=== PATIENT | female | born 1975 | race Caucasian/White ===

== ENCOUNTER → 2018-11-10 | Emergency (ER) | payer SELFPAY | END | disposition left against medical advice (07) | LOC: ER 17:00 | DX: R11.2 Nausea with vomiting, unspecified (principal); R19.7 Diarrhea, unspecified ==

== ENCOUNTER 2018-11-20 13:51 | Emergency (ER) | payer OTHER ==
[~2018-11-20] VITALS: Ht 154.9 cm; Wt 76.2 kg
[2018-11-20] MEDS ORDERED: IBUPROFEN 800 MG (MOTRIN) TAB PO STA (14:26)
--- NOTE | 2018-11-20 14:51 | Diagnostic Imaging Report ---
INDICATION: Left ankle pain AP, oblique, and lateral views left ankle are obtained. No fracture or acute bony abnormality seen. There is plantar and posterior calcaneal spurring. IMPRESSION: No acute abnormality of left ankle. Dictated by: Dictated on workstation # [id number]
--- NOTE | 2018-11-20 14:53 | Diagnostic Imaging Report ---
INDICATION: Left foot pain. AP, oblique, lateral views of left foot are obtained. No fracture or acute bony abnormality is seen. There is posterior plantar calcaneal spurring. IMPRESSION: Negative left foot. Dictated by: Dictated on workstation # [id number]
--- NOTE | 2018-11-20 15:00 | ED Lower Extremity ---
General Chief Complaint: Lower Extremity Stated Complaint: L FOOT INJ Nursing Triage Note: AMBULATED TO TRIAGE ET LIMPING ON LEFT SIDE. STATES TWO DAYS AGO SHE ROLLED HER LEFT ANKLE AND YESTERDAY SHE SLIPPED ON ICE. TOOK IBUPROFEN LAST NOC. Nursing Sepsis Screen: No Definite Risk History of Present Illness Date Seen by Provider: Nov 20, 2018 Time Seen by Provider: 14:30 Initial Comments 42-year-old female presents for left ankle and foot pain. She states 2 days ago she twisted her left ankle and then yesterday at work her foot and ankle were twisted. She's had no significant injuries to her left lower extremity in the past. Onset: yesterday Pain/Injury Location: left foot, left ankle Method of Injury: twisted Modifying Factors: Improves With Rest Allergies and Home Medications Allergies Coded Allergies: Penicillins (Verified Allergy, Severe, SOA, HIVES, EDEMA, 11/20/18) amoxicillin (Verified Allergy, Severe, SOA, HIVES, EDEMA, 11/20/18) ampicillin (Verified Allergy, Severe, SOA, HIVES, EDEMA, 11/20/18) codeine (Verified Allergy, Severe, RASH, EDEMA, 11/20/18) meperidine (Verified Allergy, Severe, RASH, SOA, EDEMA, 11/20/18) Uncoded Allergies: ALL PAIN MEDS (Allergy, Severe, HIVES, SOA, EDEMA, 11/20/18) Home Medications No Active Prescriptions or Reported Meds Patient Home Medication List Home Medication List Reviewed: Yes Review of Systems Constitutional: no symptoms reported, see HPI Musculoskeletal: see HPI, joint pain (left ankle and foot) All Other Systems Reviewed Negative Unless Noted: Yes Past Xuzmcgt-Zlfmtx-Uwdrvb Hx Past Med/Social Hx: Reviewed Nursing Past Med/Soc Hx Patient Social History Alcohol Use: Occasionally Uses Recreational Drug Use: No Smoking Status: Former Smoker Recent Foreign Travel: No Contact w/Someone Who Travel: No Recent Infectious Disease Expo: No Past Medical History Respiratory: No Cardiac: No Neurological: No : No 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 oz. 76.155799lc; BMI Method:Stated General Appearance: WD/WN, no apparent distress Cardiovascular: normal peripheral pulses, regular rate, rhythm, no edema, no murmur Respiratory: chest non-tender, lungs clear, normal breath sounds Ankles: left ankle normal inspection, left ankle normal range of motion, left ankle bone tenderness (lateral), left ankle soft tissue tenderness (over ATFL), left ankle swelling Feet: left foot normal inspection, left foot normal range of motion, left foot bone tenderness (midfoot), left foot soft tissue tenderness, left foot other ( neurovascular status intact left lower extremity symmetric with the right.) Neurologic/Psychiatric: no motor/sensory deficits, alert, normal mood/affect Progress/Results/Core Measures Results/Orders My Orders Orders - BRIT ALEXANDRA Ibuprofen Tablet (Motrin Tablet) (11/20/18 14:26) Foot, Left, 3 Views (11/20/18 14:26) Ankle, Left, 3 Views (11/20/18 14:26) Vital Signs/I&O 11/20/18 13:59 Temp 98.1 Pulse 88 Resp 16 B/P (MAP) 114/69 (84) Pulse Ox 99 O2 Delivery Room Air Blood Pressure Mean: 84 Diagnostic Imaging Diagonstic Imaging: Xray Comments NAME: CHARU HELTON [facility] REC#: [id number] PT STATUS: REG ER : 1975 PHYSICIAN: BRIT ALEXANDRA ADMIT DATE: 11/20/18/ER Draft Date of Exam:11/20/18 ANKLE, LEFT, 3 VIEWS INDICATION: Left ankle pain AP, oblique, and lateral views left ankle are obtained. No fracture or acute bony abnormality seen. There is plantar and posterior calcaneal spurring. IMPRESSION: No acute abnormality of left ankle. Dictated on workstation # [id number] Dict: 11/20/18 1449 Trans: 11/20/18 1450 [facility] [id number] Interpreted by: MARK ANTHONY RUSSELL MD Electronically signed by: Reviewed: Reviewed by Me Diagonstic Imaging: Xray Comments NAME: CHARU HELTON [facility] REC#: [id number] PT STATUS: REG ER : 1975 PHYSICIAN: BRIT ALEXANDRA ADMIT DATE: 11/20/18/ER Draft Date of Exam:11/20/18 FOOT, LEFT, 3 VIEWS INDICATION: Left foot pain. AP, oblique, lateral views of left foot are obtained. No fracture or acute bony abnormality is seen. There is posterior plantar calcaneal spurring. IMPRESSION: Negative left foot. Dictated on workstation # [id number] Dict: 11/20/18 1448 Trans: 11/20/18 1452 [facility] [id number] Interpreted by: MARK ANTHONY RUSSELL MD Electronically signed by: Reviewed: Reviewed by Me Departure Impression Primary Impression: Left ankle sprain Qualified Codes: S93.492A - Sprain of other ligament of left ankle, initial encounter Additional Impression: Sprain of foot, left Qualified Codes: S93.602A - Unspecified sprain of left foot, initial encounter Disposition: HOME, SELF-CARE Condition: Stable Departure-Patient Inst. Decision time for Depature: 14:55 Referrals: NO,LOCAL PHYSICIAN (PCP/Family) Primary Care Physician Patient Instructions: Ankle Sprain (DC) Add. Discharge Instructions: Ice and elevate left ankle and foot. Ice 20 minutes every 2 hours while awake. You may alternate between Tylenol 650 mg and ibuprofen 600 mg every 4 hours for pain and swelling. Activity as tolerated, progress weight bearing on left lower extremity. Follow-up with your primary care provider if symptoms are not improving or worsen. Return to emergency department for new, urgent health care needs. All discharge instructions reviewed with patient and/or family. Voiced understanding. Scripts No Active Prescriptions or Reported Meds Work/School Note: Work Release Form Date Seen in the Emergency Department: Nov 20, 2018 Return to Work: Nov 24, 2018 Other Restrictions Listed Below: Light duty for left foot/ankle as tolerated. Ice and elevate every 2 hours BRIT ALEXANDRA Nov 20, 2018 15:00
[2018-11-20 15:20] VITALS: BP 114/69
--- NOTE | 2018-11-20 15:20 | NUR ---
PT WENT TO [facility] AFTER DISCHARGE.
== END 2018-11-20 15:20 | disposition home or self-care (01) ==
LOC: EDUNIT# 13:51 → ER 13:53
DX: S93.492A Sprain of other ligament of left ankle, initial encounter (principal); S93.602A Unspecified sprain of left foot, initial encounter; Z88.0 Allergy status to penicillin; Z88.5 Allergy status to narcotic agent; Z88.8 Allergy status to other drugs, medicaments and biological substances; Z98.51 Tubal ligation status; Z87.891 Personal history of nicotine dependence; X50.1XXA Overexertion from prolonged static or awkward postures, initial encounter; Y92.59 Other trade areas as the place of occurrence of the external cause; Y99.0 Civilian activity done for income or pay
CPT/HCPCS: 73610; 73630

== ENCOUNTER 2019-02-26 12:23 | Emergency (ER) | payer SELFPAY ==
[~2019-02-26] VITALS: Ht 154.9 cm; Wt 66.2 kg
[2019-02-26] MEDS ORDERED: KETOROLAC 30 MG/ML VIAL IVP ONE (12:45)
[2019-02-26] MEDS ORDERED: LACTATED RINGERS 1,000 ML IV SCH (12:45)
--- NOTE | 2019-02-26 12:48 | ED Abdominal Pain ---
General Chief Complaint: Abdominal/GI Problems Stated Complaint: R SIDE PAIN Source of Information: Patient Exam Limitations: No Limitations History of Present Illness Date Seen by Provider: Feb 26, 2019 Time Seen by Provider: 12:46 Initial Comments To ER per private vehicle with reports of right-sided abdominal pain that began this morning. She had some nausea yesterday but no pain. The pain was fairly well localized to the right lower quadrant this morning and throughout the course of the day has become more diffuse including the right flank right upper abdomen and moving towards the midline. No fevers or chills. No constipation or diarrhea though she does have increased pain when straining to have a bowel movement. She has had nausea without vomiting. She does not have a gallbladder. Timing/Duration: 1-2 Days Severity/Quality: Moderate Location: RUQ, RLQ, Flank Radiation: No Radiation Activities at Onset: None Associated Symptoms: Denies Symptoms Allergies and Home Medications Allergies Coded Allergies: Penicillins (Verified Allergy, Severe, SOA, HIVES, EDEMA, 11/20/18) amoxicillin (Verified Allergy, Severe, SOA, HIVES, EDEMA, 11/20/18) ampicillin (Verified Allergy, Severe, SOA, HIVES, EDEMA, 11/20/18) codeine (Verified Allergy, Severe, RASH, EDEMA, 11/20/18) meperidine (Verified Allergy, Severe, RASH, SOA, EDEMA, 11/20/18) Uncoded Allergies: ALL PAIN MEDS (Allergy, Severe, HIVES, SOA, EDEMA, 11/20/18) Home Medications Ketorolac Tromethamine 10 Mg Tablet, 10 MG PO Q6H PRN for PAIN-MODERATE TO SEVERE Prescribed by: BRENTON FROST on 02/26/19 1508 Patient Home Medication List Home Medication List Reviewed: Yes Review of Systems Review of Systems Constitutional: see HPI; No chills, No fever EENTM: No Symptoms Reported Respiratory: No Symptoms Reported Gastrointestinal: See HPI, Abdominal Pain; Denies Constipated, Denies Diarrhea ; Nausea; Denies Vomiting Genitourinary: No Symptoms Reported Musculoskeletal: no symptoms reported Skin: no symptoms reported Psychiatric/Neurological: No Symptoms Reported Endocrine: No Symptoms Reported Hematologic/Lymphatic: No Symptoms Reported Past Hfvtlan-Kixecj-Jvxyap Hx Patient Social History Recent Foreign Travel: No Contact w/Someone Who Travel: No Past Medical History Respiratory: No Cardiac: No Neurological: No 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 oz. 76.388059yz; BMI Method:Stated General Appearance: WD/WN, no apparent distress, other (tearful) HEENT: PERRL/EOMI, normal ENT inspection Neck: non-tender, full range of motion Respiratory: normal breath sounds, no respiratory distress, no accessory muscle use Gastrointestinal: normal bowel sounds, non tender, soft Extremities: normal range of motion, non-tender Neurologic/Psychiatric: alert, normal mood/affect, oriented x 3 Skin: normal color, warm/dry Progress/Results/Core Measures Results/Orders Lab Results Laboratory Tests Test 02/26/19 12:41 02/26/19 13:55 Range/Units White Blood Count 4.8 4.3-11.0 10^3/uL Red Blood Count 4.15 L 4.35-5.85 10^6/uL Hemoglobin 11.8 11.5-16.0 G/DL Hematocrit 36 35-52 % Mean Corpuscular Volume 86 80-99 FL Mean Corpuscular Hemoglobin 28 25-34 PG Mean Corpuscular Hemoglobin Concent 33 32-36 G/DL Red Cell Distribution Width 13.6 10.0-14.5 % Platelet Count 230 130-400 10^3/uL Mean Platelet Volume 12.2 H 7.4-10.4 FL Neutrophils (%) (Auto) 55 42-75 % Lymphocytes (%) (Auto) 33 12-44 % Monocytes (%) (Auto) 10 0-12 % Eosinophils (%) (Auto) 1 0-10 % Basophils (%) (Auto) 1 0-10 % Neutrophils # (Auto) 2.7 1.8-7.8 X 10^3 Lymphocytes # (Auto) 1.6 1.0-4.0 X 10^3 Monocytes # (Auto) 0.5 0.0-1.0 X 10^3 Eosinophils # (Auto) 0.1 0.0-0.3 10^3/uL Basophils # (Auto) 0.0 0.0-0.1 10^3/uL Sodium Level 139 135-145 MMOL/L Potassium Level 4.0 3.6-5.0 MMOL/L Chloride Level 107 98-107 MMOL/L Carbon Dioxide Level 25 21-32 MMOL/L Anion Gap 7 5-14 MMOL/L Blood Urea Nitrogen 13 7-18 MG/DL Creatinine 0.90 0.60-1.30 MG/DL Estimat Glomerular Filtration Rate > 60 BUN/Creatinine Ratio 14 Glucose Level 103 70-105 MG/DL Calcium Level 9.1 8.5-10.1 MG/DL Corrected Calcium 9.0 8.5-10.1 MG/DL Total Bilirubin 0.5 0.1-1.0 MG/DL Aspartate Amino Transf (AST/SGOT) 12 5-34 U/L Alanine Aminotransferase (ALT/SGPT) 16 0-55 U/L Alkaline Phosphatase 60 40-136 U/L Total Protein 6.8 6.4-8.2 GM/DL Albumin 4.1 3.2-4.5 GM/DL Serum Test, Qualitative NEGATIVE NEGATIVE Urine Color YELLOW Urine Clarity SLIGHTLY CLOUDY Urine pH 8 5-9 Urine Specific [place] 1.010 L 1.016-1.022 Urine Protein 1+ H NEGATIVE Urine Glucose (UA) NEGATIVE NEGATIVE Urine Ketones NEGATIVE NEGATIVE Urine Nitrite NEGATIVE NEGATIVE Urine Bilirubin NEGATIVE NEGATIVE Urine Urobilinogen NORMAL NORMAL MG/DL Urine Leukocyte Esterase 1+ H NEGATIVE Urine RBC (Auto) 5+ H NEGATIVE Urine RBC TNTC H /HPF Urine WBC NONE /HPF Urine Squamous Epithelial Cells 0-2 /HPF Urine Crystals NONE /LPF Urine Bacteria NEGATIVE /HPF Urine Casts NONE /LPF Urine Mucus NEGATIVE /LPF Urine Culture Indicated NO My Orders Orders - BRENTON FROST 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 OPERATOR FUSE Cbc With Automated Diff (02/26/19 12:45) Comprehensive Metabolic Panel (02/26/19 12:45) Ua Culture If Indicated (02/26/19 12:45) Hcg,Qualitative Serum (02/26/19 12:45) Iv Heplock-Insert (Order) (02/26/19 12:45) Ketorolac Injection (Toradol Injection) (02/26/19 12:45) Lactated Ringers (Lr 1000 Ml Iv Solution (02/26/19 12:45) Ct Abd/Pelv W (Appendicitis) (02/26/19 12:45) Iohexol Injection (Omnipaque 350 Mg/Ml 1 (02/26/19 14:15) Received Contrast (Hold Metformin- Contr (02/26/19 14:15) Abdomen/Kub 1view (02/26/19 14:36) Medications Given in ED Current Medications Medications Dose Ordered Sig/Beatris Route Start Time Stop Time Status Last Admin Dose Admin Iohexol 100 ml ONCE ONCE IV 02/26/19 14:15 02/26/19 14:16 DC 02/26/19 14:16 100 ML Ketorolac Tromethamine 30 mg ONCE ONCE IVP 02/26/19 12:45 02/26/19 12:47 DC 02/26/19 12:55 30 MG Vital Signs/I&O 02/26/19 12:50 Temp 97.9 Pulse 62 Resp 15 B/P (MAP) 102/55 (71) Pulse Ox 99 O2 Delivery Room Air Diagnostic Imaging Diagonstic Imaging: Xray, CT Comments NAME: CHARU HELTON [facility] REC#: [id number] PT STATUS: REG ER : 1975 PHYSICIAN: BRENTON FROST APRN ADMIT DATE: 02/26/19/ER Draft Date of Exam:02/26/19 CT ABD/PELV W (APPENDICITIS) PROCEDURE: CT abdomen and pelvis with contrast, rule out appendicitis. TECHNIQUE: Multiple contiguous axial images were obtained through the abdomen and pelvis after the administration of intravenous contrast. INDICATION: Right-sided abdominal pain and nausea. No prior studies are available for comparison. The lung bases are clear. No discrete liver mass is identified. The gallbladder is surgically absent. No biliary duct dilatation is seen. The pancreas and spleen are unremarkable. No adrenal mass is seen. Bilateral renal calculi are present. There is a stone located at the right UPJ measuring 8 mm in size. There is hydronephrosis on the right as well as proximal peripelvic and periureteral inflammatory stranding. The remainder of the right ureter is unremarkable. Left ureter is unremarkable. Nonobstructing stone in the left kidney measures 5 mm. Aorta is nonaneurysmal. Small and large bowel loops are normal caliber. There is some diverticulosis of the sigmoid but no evidence of acute diverticulitis. Appendix is unremarkable. The uterus appears to be enlarged and may contain fibroids. Small cyst right adnexa measures 16 mm and is likely ovarian. The bladder is unremarkable. There is no ascites. IMPRESSION: 1. Bilateral urinary tract calculi. There is an 8 mm calculus at the right UPJ producing mild hydronephrosis as well surrounding inflammatory changes. 2. Uncomplicated diverticulosis. 3. Enlarged uterus, perhaps containing fibroids. 4. Small right adnexal cyst. Dictated on workstation # [id number] Dict: 02/26/19 1437 Trans: 02/26/19 1445 [facility] [id number] Interpreted by: TATIANA BRASHER MD Electronically signed by: Departure Communication (Admissions) I discussed the case with Dr. Mckeon. We will discharge the patient home on oral Toradol given her list of allergies and reported to me of being allergic to "everything" in regards to pain medication. She Tylenol to the Toradol, she should call his office for an appointment time, the lithotripsy bus comes next Sunday. Impression Primary Impression: Right ureteral stone Disposition: HOME, SELF-CARE Condition: Stable Departure-Patient Inst. Decision time for Depature: 14:39 Referrals: NO,LOCAL PHYSICIAN (PCP) Primary Care Physician PETEY ISBELL MD Patient Instructions: Kidney Stones in Adults Add. Discharge Instructions: 1. Call Dr. Isbell today or tomorrow to make an appointment to be seen. Fill the pain medication and take as directed. You may add Tylenol (acetaminophen) to the prescribed pain medication safely. All discharge instructions reviewed with patient and/or family. Voiced understanding. Scripts Ketorolac Tromethamine (Ketorolac Tromethamine) 10 Mg Tablet 10 MG PO Q6H PRN for PAIN-MODERATE TO SEVERE, #20 TAB Prov: BRENTON FROST APRN 02/26/19 Work/School Note: Work Release Form Date Seen in the Emergency Department: Feb 26, 2019 Return to Work: Feb 28, 2019 Copy Copies To 1: PETEY ISBELL MD, PETER J APRN Feb 26, 2019 12:48
[2019-02-26 12:53] LABS: BASOPHILS % (AUTO) 1 % (0-10); EOSINOPHILS # (AUTO) 0.1 10^3/uL (0.0-0.3); EOSINOPHILS % (AUTO) 1 % (0-10); HEMATOCRIT 36 % (35-52); HEMOGLOBIN 11.8 G/DL (11.5-16.0); LYMPHOCYTES # (AUTO) 1.6 X 10^3 (1.0-4.0); LYMPHOCYTES % (AUTO) 33 % (12-44); MEAN CORPUSCULAR HEMOGLOBIN 28 PG (25-34); MEAN CORPUSCULAR HGB CONC 33 G/DL (32-36); MEAN CORPUSCULAR VOLUME 86 FL (80-99); MEAN PLATELET VOLUME 12.2 FL (7.4-10.4); MONOCYTES # (AUTO) 0.5 X 10^3 (0.0-1.0); MONOCYTES % (AUTO) 10 % (0-12); NEUTROPHILS # (AUTO) 2.7 X 10^3 (1.8-7.8); NEUTROPHILS % (AUTO) 55 % (42-75); PLATELET COUNT 230 10^3/uL (130-400); RED CELL DISTRIBUTION WIDTH 13.6 % (10.0-14.5); WHITE BLOOD COUNT 4.8 10^3/uL (4.3-11.0)
[2019-02-26 13:05] LABS: ALANINE AMINOTRANSFERASE 16 U/L (0-55); ALBUMIN 4.1 GM/DL (3.2-4.5); ALKALINE PHOSPHATASE 60 U/L (40-136); BILIRUBIN,TOTAL 0.5 MG/DL (0.1-1.0); BUN/CREATININE RATIO 14; CALCIUM 9.1 MG/DL (8.5-10.1); CARBON DIOXIDE 25 MMOL/L (21-32); CHLORIDE 107 MMOL/L (98-107); GFR ESTIMATED > 60; GLUCOSE 103 MG/DL (70-105); SODIUM 139 MMOL/L (135-145); TOTAL PROTEIN 6.8 GM/DL (6.4-8.2)
[2019-02-26 14:02] LABS: BILIRUBIN,URINE NEGATIVE (NEGATIVE); CLARITY,URINE SLIGHTLY CLOUDY; COLOR,URINE YELLOW; GLUCOSE, URINE (UA) NEGATIVE (NEGATIVE); KETONES,URINE NEGATIVE (NEGATIVE); LEUKOCYTE ESTERASE ,URINE 1+ (NEGATIVE); NITRITE,URINE NEGATIVE (NEGATIVE); PH,URINE 8 (5-9); PROTEIN,URINE 1+ (NEGATIVE); UROBILINOGEN,URINE NORMAL (NORMAL)
[2019-02-26] MEDS ORDERED: IOHEXOL 350 MG/ML 100 ML (OMNIPAQUE 350) VIAL IV ONE (14:15)
[2019-02-26] MEDS ORDERED: HOLD METFORMIN - RECEIVED CONTRAST 20 ML VIAL IV SCH (14:15)
[2019-02-26 14:22] LABS: BACTERIA,URINE NEGATIVE /HPF; RBC,URINE TNTC /HPF; SQUAMOUS EPITHELIAL CELL,UR 0-2 /HPF
--- NOTE | 2019-02-26 14:45 | Diagnostic Imaging Report ---
PROCEDURE: CT abdomen and pelvis with contrast, rule out appendicitis. TECHNIQUE: Multiple contiguous axial images were obtained through the abdomen and pelvis after the administration of intravenous contrast. INDICATION: Right-sided abdominal pain and nausea. No prior studies are available for comparison. The lung bases are clear. No discrete liver mass is identified. The gallbladder is surgically absent. No biliary duct dilatation is seen. The pancreas and spleen are unremarkable. No adrenal mass is seen. Bilateral renal calculi are present. There is a stone located at the right UPJ measuring 8 mm in size. There is hydronephrosis on the right as well as proximal peripelvic and periureteral inflammatory stranding. The remainder of the right ureter is unremarkable. Left ureter is unremarkable. Nonobstructing stone in the left kidney measures 5 mm. Aorta is nonaneurysmal. Small and large bowel loops are normal caliber. There is some diverticulosis of the sigmoid but no evidence of acute diverticulitis. Appendix is unremarkable. The uterus appears to be enlarged and may contain fibroids. Small cyst right adnexa measures 16 mm and is likely ovarian. The bladder is unremarkable. There is no ascites. IMPRESSION: 1. Bilateral urinary tract calculi. There is an 8 mm calculus at the right UPJ producing mild hydronephrosis as well surrounding inflammatory changes. 2. Uncomplicated diverticulosis. 3. Enlarged uterus, perhaps containing fibroids. 4. Small right adnexal cyst. Dictated by: Dictated on workstation # [id number]
[2019-02-26] MEDS ORDERED: KETO10TA PO (15:08)
--- NOTE | 2019-02-26 15:12 | Diagnostic Imaging Report ---
INDICATION: Right-sided abdominal pain. TIME OF EXAM: 02:56 p.m. Contrast is seen within both renal collecting systems and both ureters. Bilateral urinary tract calculi noted on CT are obscured by the contrast. The bowel gas pattern is unremarkable. IMPRESSION: Bilateral renal collection systems and ureters appear unremarkable, although there does appear to be a faint filling defect at the right UPJ correlating with recently seen calculus on CT. No other significant abnormality is detected. Dictated by: Dictated on workstation # [id number]
[2019-02-26 15:18] VITALS: BP 105/60
== END 2019-02-26 15:18 | disposition home or self-care (01) ==
LOC: EDUNIT# 12:23 → ER 12:24
DX: N13.2 Hydronephrosis with renal and ureteral calculous obstruction (principal); Z88.0 Allergy status to penicillin; Z88.5 Allergy status to narcotic agent; Z88.8 Allergy status to other drugs, medicaments and biological substances; Z98.51 Tubal ligation status
CPT/HCPCS: 36415; 74018; 74177; 80053; 81000; 84703; 85025

== ENCOUNTER 2019-07-20 14:58 | Emergency (ER) | payer SELFPAY ==
[~2019-07-20] VITALS: Ht 154.9 cm; Wt 76.7 kg
[~2019-07-20 14:58] MED LIST: KETO10TA PO
[2019-07-20] MEDS ORDERED: LIDOCAINE 2% VISCOUS 15 ML UDC ONE (15:05)
[2019-07-20] MEDS ORDERED: LIDOCAINE 2% VISCOUS 15 ML UDC PO ONE (15:15)
--- NOTE | 2019-07-20 15:20 | ED EENT ---
History of Present Illness General Chief Complaint: Ear Problems Stated Complaint: L EAR PAIN Nursing Triage Note: Pt presents to ER with C/O left ear pain x 1 week. Pt states she wears ear plugs at work and thinks she has an infection caused by those. Pt rates pain 8/10 at this time. Pt took ibuprofen for pain but is unrelieved. Pt states there is no drainage present, swelling present upon examination. Source: patient Exam Limitations: no limitations History of Present Illness Date Seen by Provider: Jul 20, 2019 Time Seen by Provider: 15:15 Initial Comments This 40-year-old white female presents with a left external otitis from wearing earplugs at work. Patient is complaining of increasing pain in left ear with swelling of the left external canal. Patient has had similar episodes in the past. Allergies and Home Medications Allergies Coded Allergies: Penicillins (Verified Allergy, Severe, SOA, HIVES, EDEMA, 11/20/18) amoxicillin (Verified Allergy, Severe, SOA, HIVES, EDEMA, 11/20/18) ampicillin (Verified Allergy, Severe, SOA, HIVES, EDEMA, 11/20/18) codeine (Verified Allergy, Severe, RASH, EDEMA, 11/20/18) meperidine (Verified Allergy, Severe, RASH, SOA, EDEMA, 11/20/18) Uncoded Allergies: ALL PAIN MEDS (Allergy, Severe, HIVES, SOA, EDEMA, 11/20/18) Home Medications Ketorolac Tromethamine 10 Mg Tablet, 10 MG PO Q6H PRN for PAIN-MODERATE TO SEVERE Prescribed by: BRENTNO FROST on 02/26/19 1508 Patient Home Medication List Home Medication List Reviewed: Yes Review of Systems Review of Systems Constitutional: No chills, No fever Eyes: Denies Blindness Ears: Pain (left ear); Denies Bloody Discharge, Denies Purulent Discharge; Previous Injury (patient is an similar episodes of otitis externa from wearing earplugs at work) Nose: no symptoms reported Mouth: no symptoms reported Throat: no symptoms reported Respiratory: no symptoms reported Cardiovascular: no symptoms reported Gastrointestinal: no symptoms reported Musculoskeletal: no symptoms reported Neurological: No Symptoms Reported Hematologic/Lymphatic: No Symptoms Reported Immunological/Allergic: no symptoms reported Past Qlwybtg-Ymepja-Rdceut Hx Past Med/Social Hx: Reviewed Nursing Past Med/Soc Hx Patient Social History Alcohol Use: Denies Use Recreational Drug Use: No Smoking Status: Never a Smoker Type Used: Electronic/Vapor Former Smoker, Quit: Jul 17, 2013 2nd Hand Smoke Exposure: Yes Recent Foreign Travel: No Contact w/Someone Who Travel: No Recent Infectious Disease Expo: No Recent Hopitalizations: No Physical Abuse: No Sexual Abuse: No Mistreated: No Fear: No Seasonal Allergies Seasonal Allergies: No Past Medical History Surgeries: Yes Gallbladder Respiratory: No Cardiac: No Neurological: No 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 oz. 76.902350fk; BMI Method:Stated General Appearance: WD/WN, mild distress Ears: left ear tenderness (examination of the left ear demonstrates marked swel ling and tenderness to palpation of the left external ear. The left external canal is swollen. It was not possible to visualize the tympanic membrane due to the swelling and discomfort. ) Nose: normal inspection Mouth/Throat: normal mouth inspection Neck: normal inspection Cardiovascular: normal peripheral pulses, regular rate, rhythm Respiratory: chest non-tender, lungs clear Gastrointestinal: normal bowel sounds, non tender Neurologic/Psychiatric: no motor/sensory deficits, alert, normal mood/affect, oriented x 3 Skin: normal color, warm/dry Progress/Results/Core Measures Results/Orders My Orders Orders - TIBURCIO CRUZ MD Lidocaine 2% Viscous 15 Ml (Xylocaine Vi (07/20/19 15:15) Vital Signs/I&O 07/20/19 15:03 Temp 99.0 Pulse 101 Resp 20 B/P (MAP) 122/55 (77) Pulse Ox 97 O2 Delivery Room Air Blood Pressure Mean: 77 Progress Progress Note : Time: 15:27 Progress Note Discussed the findings with the patient. I placed a wick in the left external canal. Viscous Xylocaine was placed on the wick. I discussed with patient the need for medication to cover pseudomonas. The patient has multiple allergies to multiple antibiotic medications. It would appear from looking at the patient's list that she can take quinolones. The patient placed the patient on Cipro 500 mg twice a day. I asked patient follow-up closely with her physician tomorrow. I recommended she return to emergency department today for the problems or questions. Departure Impression Primary Impression: Otitis externa Qualified Codes: H60.332 - Swimmer's ear, left ear Disposition: HOME, SELF-CARE Condition: Improved Departure-Patient Inst. Decision time for Depature: 15:30 Referrals: [facility] [place],LOCAL PHYSICIAN (PCP) Primary Care Physician Patient Instructions: Outer Ear Infection (DC) Add. Discharge Instructions: Cipro and Vicodin as prescribed. Ciprodex drops to the left ear 6 times a day. Follow-up with [facility] and/or Dr. Velasquez. Return if any problems or questions. All discharge instructions reviewed with patient and/or family. Voiced understanding. Scripts Hydrocodone/Acetaminophen (Vicodin 5-300 mg Tablet) 1 Each Tablet 1-2 EACH PO Q6H PRN for PAIN-MODERATE MDD 10 for 7 Days, #20 TAB Prov: TIBURCIO CRUZ MD 07/20/19 Ciprofloxacin HCl (Cipro) 500 Mg Tablet 500 MG PO BID for 10 Days, TAB Prov: TIBURCIO CRUZ MD 07/20/19 Ciprofloxacin HCl/Dexameth (Ciprodex Otic Suspension) 7.5 Ml Soln 7.5 ML OT 5XD for 7 Days, EA Prov: TIBURCIO CRUZ MD 07/20/19 TIBURCIO CRUZ MD Jul 20, 2019 15:20
[2019-07-20] MEDS ORDERED: NF-CIPDEC OT (15:34)
[2019-07-20] MEDS ORDERED: CIPR-225 PO (15:34)
[2019-07-20] MEDS ORDERED: HYDR-3455 PO (15:35)
[2019-07-20 15:38] VITALS: BP 122/55
== END 2019-07-20 15:38 | disposition home or self-care (01) ==
LOC: EDUNIT# 14:58 → ER 14:59
DX: H60.92 Unspecified otitis externa, left ear (principal); Z88.0 Allergy status to penicillin; Z88.1 Allergy status to other antibiotic agents; Z88.5 Allergy status to narcotic agent; Z87.891 Personal history of nicotine dependence; Z98.51 Tubal ligation status
CPT/HCPCS: 99282

== ENCOUNTER 2019-08-14 09:52 | Emergency (ER) | payer SELFPAY ==
[~2019-08-14] VITALS: Ht 154.9 cm; Wt 70.0 kg
[~2019-08-14 09:52] MED LIST changes: +CIPR-225 PO; +HYDR-3455 PO; +NF-CIPDEC OT
--- NOTE | 2019-08-14 10:38 | ED Integumentary General ---
General Chief Complaint: Skin/Wound Problems Stated Complaint: R LEG INJ Nursing Triage Note: AMB TO ROOM REPORTS 1 WEEK AGO WAS WALKING THROUGH SOME TALL TAMMY WHEN FELT SOMETHING STING ON HER R ANKLE. NOTICED RED AREA. CONCER THAT AREA NOT GETTING ANY BETTER. AREA DARK AND RED AROUNG IT. 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 Source: patient Exam Limitations: no limitations History of Present Illness Date Seen by Provider: Aug 14, 2019 Time Seen by Provider: 10:35 Initial Comments This 43-year-old female presents with a right leg lesion. The patient was walking through the grass and felt something stick her right lower leg. She subsequently has developed an apparent open lesion to the area with surrounding inflammation. Patient is unclear what caused the stinging sensation. Patient denies other similar lesion presently or in the past. Patient believes that her tetanus immunization is current. Allergies and Home Medications Allergies Coded Allergies: Penicillins (Verified Allergy, Severe, SOA, HIVES, EDEMA, 11/20/18) amoxicillin (Verified Allergy, Severe, SOA, HIVES, EDEMA, 11/20/18) ampicillin (Verified Allergy, Severe, SOA, HIVES, EDEMA, 11/20/18) codeine (Verified Allergy, Severe, RASH, EDEMA, 11/20/18) meperidine (Verified Allergy, Severe, RASH, SOA, EDEMA, 11/20/18) acetaminophen (Verified Allergy, Unknown, 08/14/19) hydrocodone (Verified Allergy, Unknown, 08/14/19) Uncoded Allergies: ALL PAIN MEDS (Allergy, Severe, HIVES, SOA, EDEMA, 11/20/18) Home Medications No Active Prescriptions or Reported Meds Patient Home Medication List Home Medication List Reviewed: Yes Review of Systems Review of Systems Constitutional: no symptoms reported; No chills, No fever EENTM: no symptoms reported Respiratory: no symptoms reported Cardiovascular: no symptoms reported Gastrointestinal: no symptoms reported Genitourinary: no symptoms reported Musculoskeletal: no symptoms reported Skin: see HPI, other (there is an open wound to have centimeters in diameter over the medial aspect of the right distal leg approximately 3 inches above the medial malleolus. There is some surrounding inflammation measuring approximately 3 cm. 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 Genitourinary: No Gastrointestinal: No Musculoskeletal: No Endocrine: No HEENT: No Cancer: No Psychosocial: No Integumentary: No Physical Exam Vital Signs Vital Signs - First Documented 08/14/19 09:54 Temp 37.4 Pulse 76 Resp 18 B/P (MAP) 120/76 (91) Pulse Ox 100 Capillary Refill : Less Than 3 Seconds General Appearance: WD/WN, no apparent distress HEENT: normal ENT inspection Neck: normal inspection Cardiovascular: regular rate, rhythm Respiratory: lungs clear Gastrointestinal: normal bowel sounds Extremities: normal range of motion, non-tender Neurologic/Psychiatric: no motor/sensory deficits, alert Skin: normal color, warm/dry, other (there is a 2-1/2 cm in diameter lesion over the medial aspect of the right ankle suggestive of a MRSA infection. There is 3 cm of surrounding inflammation and induration which was marked with an 810 or future reference.) Progress/Results/Core Measures Results/Orders My Orders Orders - TIBURCIO CRUZ MD Tibia/Fibula, Right, 2 Views (08/14/19 10:34) Vital Signs/I&O 08/14/19 09:54 Temp 37.4 Pulse 76 Resp 18 B/P (MAP) 120/76 (91) Pulse Ox 100 Blood Pressure Mean: 91 Progress Progress Note : Time: 11:21 Progress Note X-ray of the patient's right tibia and fibula film demonstrated evidence of radiopaque foreign body. Patient was placed on Bactrim DS. She is asked to come back if the wound and/or the inflammation progressed. Departure Impression Primary Impression: Cellulitis Qualified Codes: L03.115 - Cellulitis of right lower limb Disposition: 01 HOME, SELF-CARE Condition: Unchanged Departure-Patient Inst. Decision time for Depature: 11:23 Referrals: [facility] [place] ([place] Primary Care Physician Patient Instructions: Cellulitis (Skin Infection), Adult (DC) Add. Discharge Instructions: Bactrim as prescribed. Clean the wound twice a day with soap and water. Soak in hot Epson salts twice a day. Come back if the infection progresses. Close follow-up [facility] on Sunday. Return of any problems or questions. All discharge instructions reviewed with patient and/or family. Voiced understanding. Scripts Sulfamethoxazole/Trimethoprim (Bactrim Ds Tablet) 1 Each Tablet 1 EACH PO BID for 14 Days, TAB Prov: TIBURCIO CRUZ MD 08/14/19 TIBURCIO CRUZ MD Aug 14, 2019 10:38
[2019-08-14] MEDS ORDERED: SULF1TAB35 PO (11:25)
[2019-08-14 11:45] VITALS: BP 120/76
--- NOTE | 2019-08-14 13:01 | Diagnostic Imaging Report ---
INDICATION: Spider bite. COMPARISON: None. FINDINGS: Three views of the right tibia and fibula were obtained. There is an area of poorly defined increased opacity within the soft tissues of the distal right lower leg medially. Per history, this corresponds to area of spider bite. There is no appreciable underlying osseous abnormality. No appreciable lytic or blastic bony lesion is seen. Osseous structures are intact. Joint spaces are maintained. No other unexpected radiopaque foreign bodies are seen. IMPRESSION: 1. Soft tissue opacity corresponding to area of spider bite, which may be on the basis of underlying hematoma or focal soft tissue edema/necrosis. Correlation with sonogram may be of benefit, if indicated. 2. No acute osseous abnormality is identified. Please note, osteomyelitis cannot be excluded based on radiographs alone. If there is concern for osteomyelitis, MRI is recommended. Dictated by: Dictated on workstation # [id number]
== END 2019-08-14 11:45 | disposition home or self-care (01) ==
LOC: EDUNIT# 09:52 → ER 09:53
DX: L03.115 Cellulitis of right lower limb (principal); Z98.51 Tubal ligation status; Z88.0 Allergy status to penicillin; Z88.1 Allergy status to other antibiotic agents; Z88.5 Allergy status to narcotic agent; Z88.6 Allergy status to analgesic agent; Z87.891 Personal history of nicotine dependence
CPT/HCPCS: 73590

== ENCOUNTER 2020-06-02 12:50 | Emergency (ER) | payer OTHER ==
[~2020-06-02] VITALS: Ht 154.9 cm; Wt 72.6 kg
[~2020-06-02 12:50] MED LIST changes: +SULF1TAB35 PO
--- OUTSIDE RECORDS SUMMARY | 2020-06-02 14:12 | XMS REPORT | Continuity of Care Document ---
Author Organization Unknown Address Unknown Phone Unavailable Allergies Active Description Code Type Severity Reaction Onset Reported/Identified Relationship to Patient Clinical Status Yes ALL PAIN MEDS ALL PAIN MEDS Severe HIVES, SOA, VICTOR MANUEL 11/20/2018 Yes amoxicillin [id number] Drug Aller gy Severe SOA, HIVES, VICTOR MANUEL 11/20/2018 Yes ampicillin [id number] Drug Allerg y Severe SOA, HIVES, VICTOR MANUEL 11/20/2018 Yes codeine [id number] Drug Allergy Severe RASH, EDEMA 11/20/2018 Yes meperidine [id number] Drug Allerg y Severe RASH, SOA, GAGE 11/20/2018 Yes Penicillins [id number] Drug Aller gy Severe SOA, HIVES, VICTOR MANUEL 11/20/2018 Yes acetaminophen [id number] Saw g Allergy Unknown N/A 08/14/2019 Yes hydrocodone [id number] Drug Aller gy Unknown N/A 08/14/2019 Medications There is no data. Problems Date Dx Coded Attending Type Code Diagnosis Diagnosed By 11/10/2018 MUNIRA ALANIZ DO Ot R11.2 NAUSEA WITH VOMITING, UNSPECIFIED 11/10/2018 HOUSTON ALANIZ DOA K Ot R19.7 DIARRHEA, UNSPECIFIED 11/13/2018 HOUSTON ALANIZ DOA K Ot R11.2 NAUSEA WITH VOMITING, UNSPECIFIED 11/13/2018 HOUSTON ALANIZ DOA K Ot R19.7 DIARRHEA, UNSPECIFIED 11/13/2018 HOUSTON ALANIZ DOA K Ot R11.2 NAUSEA WITH VOMITING, UNSPECIFIED 11/13/2018 HOUSTON ALANIZ DOA K Ot R19.7 DIARRHEA, UNSPECIFIED 11/22/2018 BRIT ALEXANDRA Ot M25.572 PAIN IN LEFT ANKLE AND JOINTS OF LEFT FO 11/22/2018 BRIT ALEXANDRA Ot S93.492A SPRAIN OF OTHER LIGAMENT OF LEFT ANKLE, 11/22/2018 BRIT ALEXANDRA Ot S93.602A UNSPECIFIED SPRAIN OF LEFT FOOT, INITIAL 11/22/2018 BRIT ALEXANDRA Ot X50.1XXA OVEREXERTION FROM PROLONGED STATIC OR AW 11/22/2018 BRIT ALEXANDRA Ot Y92.[address] 11/22/2018 BRIT ALEXANDRA Ot Y99.0 CIVILIAN ACTIVITY DONE FOR INCOME OR PAY 11/22/2018 BRIT ALEXANDRAP Ot Z87.891 PERSONAL HISTORY OF NICOTINE DEPENDENCE 11/22/2018 BRIT ALEXANDRAP Ot Z88.0 ALLERGY STATUS TO PENICILLIN 11/22/2018 NASRIN BRIT MASTIC MAN Ot Z88.5 ALLERGY STATUS TO NARCOTIC AGENT STATUS 11/22/2018 BRIT ALEXANDRAP Ot Z88.8 ALLERGY STATUS TO OTH DRUG/MEDS/BIOL SUB 11/22/2018 BRIT ALEXANDRAP Ot Z98.51 TUBAL LIGATION STATUS 02/26/2019 BRENTON FROST APRN Ot N13 .2 HYDRONEPHROSIS WITH RENAL AND URETERAL C 02/26/2019 BRENTON FROST APRN Ot R10.11 RIGHT UPPER QUADRANT PAIN 02/26/2019 BRENTON FROST SENIOR INFORMATION SECURITY CONSULTANT Ot Z88 .0 ALLERGY STATUS TO PENICILLIN 02/26/2019 BRENTON FROST SENIOR INFORMATION SECURITY CONSULTANT Ot Z88 .5 ALLERGY STATUS TO NARCOTIC AGENT STATUS 02/26/2019 BRENTON FROST SENIOR INFORMATION SECURITY CONSULTANT Ot Z88 .8 ALLERGY STATUS TO OTH DRUG/MEDS/BIOL SUB 02/26/2019 BRENTON FROST APRN Ot Z98.51 TUBAL LIGATION STATUS 02/28/2019 BRENTON FROST APRN Ot N13 .2 HYDRONEPHROSIS WITH RENAL AND URETERAL C 02/28/2019 BRENTON FROST APRN Ot R10.11 RIGHT UPPER QUADRANT PAIN 02/28/2019 BRENTON FROST APRN Ot Z88 .0 ALLERGY STATUS TO PENICILLIN 02/28/2019 BRENTON FROST SENIOR INFORMATION SECURITY CONSULTANT Ot Z88 .5 ALLERGY STATUS TO NARCOTIC AGENT STATUS 02/28/2019 BRENTON FROST SENIOR INFORMATION SECURITY CONSULTANT Ot Z88 .8 ALLERGY STATUS TO OTH DRUG/MEDS/BIOL SUB 02/28/2019 BRENTON FROST APRN Ot Z98.51 TUBAL LIGATION STATUS 07/24/2019 ANTHONY SMITH, TIBURCIO Jules Ot H60. 92 UNSPECIFIED OTITIS EXTERNA, LEFT EAR 07/24/2019 ANTHONY SMITH TIBURCIO Jules Ot H92. 02 OTALGIA, LEFT EAR 07/24/2019 ANTHONY SMITH TIBURCIO Jules Ot Z87.891 PERSONAL HISTORY OF NICOTINE DEPENDENCE 07/24/2019 TIBURCIO CRUZ MD Ot Z88. 0 ALLERGY STATUS TO PENICILLIN 07/24/2019 ANTHONY SMITH TIBURCIO Jorge A Ot Z88. 1 ALLERGY STATUS TO OTHER ANTIBIOTIC AGENT 07/24/2019 TIBURCIO CRUZ MD Ot Z88. 5 ALLERGY STATUS TO NARCOTIC AGENT STATUS 07/24/2019 TIBURCIO CRUZ MD Ot Z98. 51 TUBAL LIGATION STATUS 08/16/2019 TIBURCIO CRUZ MD Ot L03.115 CELLULITIS OF RIGHT LOWER LIMB 08/16/2019 TIBURCIO CRUZ MD Ot Z87.891 PERSONAL HISTORY OF NICOTINE DEPENDENCE 08/16/2019 TIBURCIO CRUZ MD Ot Z88. 0 ALLERGY STATUS TO PENICILLIN 08/16/2019 TIBURCIO CRUZ MD Ot Z88. 1 ALLERGY STATUS TO OTHER ANTIBIOTIC AGENT 08/16/2019 TIBURCIO CRUZ MD Ot Z88. 5 ALLERGY STATUS TO NARCOTIC AGENT STATUS 08/16/2019 ANTHONY SMITH TIBURCIO Jorge A Ot Z88. 6 ALLERGY STATUS TO ANALGESIC AGENT STATUS 08/16/2019 ANTHONY SMITH TIBURCIO Jorge A Ot Z98. 51 TUBAL LIGATION STATUS Procedures There is no data. Results Test Result Range Complete blood count (CBC) with automate d white blood cell (WBC) differential - 02/26/19 12:41 Blood leukocytes automated count (number/volume) 4.8 10*3/uL 4.3-11.0 Blood erythrocytes automated count (number/volume) 4.15 10*6/uL 4.35-5.85 Venous blood hemoglobin measurement (mass/volume) 11.8 g/dL 11.5-16.0 Blood hematocrit (volume fraction) 36 % 35-52 Automated erythrocyte mean corpuscular volume 86 [ foz_us] 80-99 Automated erythrocyte mean corpuscular h emoglobin (mass per erythrocyte) 28 pg 25-34 Automated erythrocyte mean corpuscular h emoglobin concentration measurement (mass/volume) 33 g/dL 32-36 Automated erythrocyte distribution width ratio 13. 6 % 10.0- 14.5 Automated blood platelet count (count/volume) 230 10*3/uL 130-400 Automated blood platelet mean volume measurement 12.2 [foz_us] 7.4-10.4 Automated blood neutrophils/100 leukocytes 55 % 42-75 Automated blood lymphocytes/100 leukocytes 33 % 12-44 Blood monocytes/100 leukocytes 10 % 0-12 Automated blood eosinophils/100 leukocytes 1 % 0-10 Automated blood basophils/100 leukocytes 1 % 0-10 Blood neutrophils automated count (number/volume) 2.7 10*3 1.8-7.8 Blood lymphocytes automated count (number/volume) 1.6 10*3 1.0-4.0 Blood monocytes automated count (number/volume) 0. 5 10*3 0.0-1.0 Automated eosinophil count 0.1 10*3/uL 0 .0-0.3 Automated blood basophil count (count/volume) 0.0 10*3/uL 0.0-0.1 Serum or plasma choriogonadotropin (preg adiel test) detection - 02/26/19 12:41 Serum or plasma choriogonadotropin ( test) de tection NEGATIVE NEGATIVE Comprehensive metabolic panel - 02/26/19 12:41 Serum or plasma sodium measurement (moles/volume) 139 mmol/L 135-145 Serum or plasma potassium measurement (moles/volume) 4.0 mmol/L 3.6-5.0 Serum or plasma chloride measurement (moles/volume) 107 mmol/L 98-107 Carbon dioxide 25 mmol/L 21-32 Serum or plasma anion gap determination (moles/volume) 7 mmol/L 5-14 Serum or plasma urea nitrogen measurement (mass/volume ) 13 mg/dL 7-18 Serum or plasma creatinine measurement (mass/volume) 0.90 mg/dL 0.60-1.30 Serum or plasma urea nitrogen/creatinine mass ratio 14 NRG Serum or plasma creatinine measurement w ith calculation of estimated glomerular filtration rate > NRG Serum or plasma glucose measurement (mass/volume) 103 mg/dL 70-105 Serum or plasma calcium measurement (mass/volume) 9.1 mg/dL 8.5-10.1 Serum or plasma total bilirubin measurement (mass/volu me) 0.5 mg/dL 0.1-1.0 Serum or plasma alkaline phosphatase tierra surement (enzymatic activity/volume) 60 U/L 40-136 Serum or plasma aspartate aminotransfera se measurement (enzymatic activity/volume) 12 U/L 5-34 Serum or plasma alanine aminotransferase measurement (enzymatic activity/volume) 16 U/L 0-55 Serum or plasma protein measurement (mass/volume) 6.8 g/dL 6.4-8.2 Serum or plasma albumin measurement (mass/volume) 4.1 g/dL 3.2-4.5 CALCIUM CORRECTED 9.0 mg/dL 8.5-10.1 Complete urinalysis with reflex to cultu re - 02/26/19 13:55 Urine color determination YELLOW NRG Urine clarity determination SLIGHTLY CLOUDY NRG Urine pH measurement by test strip 8 5-9 Specific gravity of urine by test strip 1.010 1.016-1.022 Urine protein assay by test strip, semi-quantitative 1+ NEGATIVE Urine glucose detection by automated test strip NE GATIVE NEGATIVE Erythrocytes detection in urine sediment by light micr oscopy 5+ NEGATIVE Urine ketones detection by automated test strip NE GATIVE NEGATIVE Urine nitrite detection by test strip NEGATIVE NEGATIVE Urine total bilirubin detection by test strip NEGA TIVE NEGATIVE Urine urobilinogen measurement by automated test strip (mass/volume) NORMAL NORMAL Urine leukocyte esterase detection by dipstick 1+ NEGATIVE Automated urine sediment erythrocyte cou nt by microscopy (number/high power field) TNTC NRG Automated urine sediment leukocyte count by microscopy (number/high power field) NONE NRG Bacteria detection in urine sediment by light microsco py NEGATIVE NRG Squamous epithelial cells detection in u rine sediment by light microscopy 0-2 NRG Crystals detection in urine sediment by light microsco py NONE NRG Casts detection in urine sediment by light microscopy NONE NRG Mucus detection in urine sediment by light microscopy NEGATIVE NRG Complete urinalysis with reflex to culture NO NRG Encounters ACCT No. Visit Date/Time Discharge Status Pt. Type Provider Facility Loc./Unit Complaint [id number] 12/16/2018 13:00:00 12/16/2018 23:59: 59 CLS Outpatient [facility] [id number] 08/14/2019 09:53:00 11:45:00 DIS Outpatient TIBURCIO CRUZ MD [facility] ER R LEG INJ [id number] 07/20/2019 14:59:00 15:38:00 DIS Outpatient TIBURCIO CRUZ MD [facility] ER L EAR PAIN [id number] 02/26/2019 12:24:00 019 15:18:00 DIS Emergency BRENTON FROST APRN [facility] ER R SIDE PAIN [id number] 11/20/2018 13:53:00 019 15:20:00 DIS Outpatient BRIT ALEXANDRA a [facility] ER L FOOT INJ [id number] 11/10/2018 17:00:00 018 18:11:00 DIS Emergency MUNIRA ALANIZ DO a [facility] ER N/V/D/ NEEDS DOCTOR'S N OTE
[2020-06-02 14:22] LABS: BASOPHILS % (AUTO) 1 % (0-10); EOSINOPHILS # (AUTO) 0.1 10^3/uL (0.0-0.3); EOSINOPHILS % (AUTO) 1 % (0-10); HEMATOCRIT 34 % (35-52); HEMOGLOBIN 10.6 G/DL (11.5-16.0); LYMPHOCYTES # (AUTO) 1.8 X 10^3 (1.0-4.0); LYMPHOCYTES % (AUTO) 23 % (12-44); MEAN CORPUSCULAR HEMOGLOBIN 23 PG (25-34); MEAN CORPUSCULAR HGB CONC 31 G/DL (32-36); MEAN CORPUSCULAR VOLUME 76 FL (80-99); MEAN PLATELET VOLUME 12.4 FL (7.4-10.4); MONOCYTES # (AUTO) 0.5 X 10^3 (0.0-1.0); MONOCYTES % (AUTO) 7 % (0-12); NEUTROPHILS # (AUTO) 5.4 X 10^3 (1.8-7.8); NEUTROPHILS % (AUTO) 69 % (42-75); PLATELET COUNT 258 10^3/uL (130-400); RED CELL DISTRIBUTION WIDTH 16.1 % (10.0-14.5); WHITE BLOOD COUNT 7.8 10^3/uL (4.3-11.0)
[2020-06-02 14:28] LABS: ALBUMIN 4.1 GM/DL (3.2-4.5); CHLORIDE 108 MMOL/L (98-107); POTASSIUM 4.1 MMOL/L (3.6-5.0); SODIUM 141 MMOL/L (135-145)
[2020-06-02 14:29] LABS: CALCIUM 8.5 MG/DL (8.5-10.1)
[2020-06-02 14:30] LABS: GLUCOSE 88 MG/DL (70-105); TOTAL PROTEIN 6.9 GM/DL (6.4-8.2)
[2020-06-02] MEDS ORDERED: NS IV 1000 ML 1,000 ML IV SCH (14:30)
[2020-06-02] MEDS ORDERED: KETOROLAC 30 MG/ML VIAL IVP ONE (14:30)
[2020-06-02 14:31] LABS: CARBON DIOXIDE 23 MMOL/L (21-32)
[2020-06-02 14:32] LABS: BILIRUBIN,TOTAL 0.3 MG/DL (0.1-1.0)
[2020-06-02 14:34] LABS: ALKALINE PHOSPHATASE 54 U/L (40-136); CREATININE SERUM 0.83 MG/DL (0.60-1.30); GFR ESTIMATED > 60
--- NOTE | 2020-06-02 14:34 | ED Abdominal Pain ---
General Chief Complaint: Abdominal/GI Problems Stated Complaint: POSSIBLE APPENDICITIS Nursing Triage Note: PT AMB TO RM 4 WITH COMPLAINT OF RLQ ABD PAIN FOR 2 WEEKS. WAS SENT BY [facility] FOR FURTHER EVALUATION. Sepsis Screen: No Definite Risk Source of Information: Patient Exam Limitations: No Limitations History of Present Illness Date Seen by Provider: Jun 02, 2020 Time Seen by Provider: 14:33 Initial Comments To ER from [facility] with reports of intermittent right lower quadrant abdominal pain for 2 weeks. No urinary symptoms no bowel symptoms. She has some intermittent dizziness when the pain gets worse when she is up moving around. Timing/Duration: 1-2 Days Severity/Quality: Moderate Location: RLQ Radiation: No Radiation Associated Symptoms: Denies Symptoms Allergies and Home Medications Allergies Coded Allergies: Penicillins (Verified Allergy, Severe, SOA, HIVES, EDEMA, 11/20/18) amoxicillin (Verified Allergy, Severe, SOA, HIVES, EDEMA, 11/20/18) ampicillin (Verified Allergy, Severe, SOA, HIVES, EDEMA, 11/20/18) codeine (Verified Allergy, Severe, RASH, EDEMA, 11/20/18) meperidine (Verified Allergy, Severe, RASH, SOA, EDEMA, 11/20/18) acetaminophen (Verified Allergy, Unknown, 08/14/19) hydrocodone (Verified Allergy, Unknown, 08/14/19) sulfamethoxazole (Verified Allergy, Unknown, 06/02/20) trimethoprim (Verified Allergy, Unknown, 06/02/20) Uncoded Allergies: ALL PAIN MEDS (Allergy, Severe, HIVES, SOA, EDEMA, 11/20/18) Home Medications Sulfamethoxazole/Trimethoprim 1 Each Tablet, 1 EACH PO BID Prescribed by: TIBURCIO CRUZ MD on 08/14/19 1125 Patient Home Medication List Home Medication List Reviewed: Yes Review of Systems Review of Systems Constitutional: see HPI EENTM: No Symptoms Reported Respiratory: No Symptoms Reported Cardiovascular: No Symptoms Reported Gastrointestinal: See HPI, Abdominal Pain Musculoskeletal: no symptoms reported Skin: no symptoms reported Psychiatric/Neurological: No Symptoms Reported Endocrine: No Symptoms Reported Hematologic/Lymphatic: No Symptoms Reported Past Rpmmqzy-Rblvrn-Njhqfp Hx Patient Social History Alcohol Use: Occasionally Uses Recreational Drug Use: No Smoking Status: Former Smoker Type Used: Electronic/Vapor Former Smoker, Quit: Jul 17, 2013 2nd Hand Smoke Exposure: Yes Recent Foreign Travel: No Contact w/Someone Who Travel: No Recent Infectious Disease Expo: No Recent Hopitalizations: No Immunizations Up To Date Tetanus Booster (TDap): Unknown PED Vaccines UTD: Yes Seasonal Allergies Seasonal Allergies: No Past Medical History Surgeries: Yes Gallbladder Respiratory: No Cardiac: No Neurological: No MOPPER History: Tubal Ligation Genitourinary: No Gastrointestinal: No Musculoskeletal: No Endocrine: No HEENT: No Cancer: No Psychosocial: No Integumentary: No Physical Exam Vital Signs Vital Signs - First Documented 06/02/20 13:27 Temp 37.0 Pulse 65 Resp 18 B/P (MAP) 123/65 (84) Pulse Ox 100 O2 Delivery Room Air Capillary Refill : Less Than 3 Seconds Height/Weight/BMI Height: 5'1.00" Weight: 169lbs. oz. [id number]; 30.00 BMI Method:Stated General Appearance: WD/WN, no apparent distress Neck: non-tender, full range of motion Respiratory: lungs clear, normal breath sounds, no respiratory distress, no accessory muscle use Gastrointestinal: normal bowel sounds, soft, tenderness Extremities: normal range of motion, non-tender Neurologic/Psychiatric: alert, normal mood/affect, oriented x 3 Skin: normal color, warm/dry Progress/Results/Core Measures Results/Orders Lab Results Laboratory Tests Test 06/02/20 14:14 06/02/20 15:11 Range/Units White Blood Count 7.8 4.3-11.0 10^3/uL Red Blood Count 4.54 4.35-5.85 10^6/uL Hemoglobin 10.6 L 11.5-16.0 G/DL Hematocrit 34 L 35-52 % Mean Corpuscular Volume 76 L 80-99 FL Mean Corpuscular Hemoglobin 23 L 25-34 PG Mean Corpuscular Hemoglobin Concent 31 L 32-36 G/DL Red Cell Distribution Width 16.1 H 10.0-14.5 % Platelet Count 258 130-400 10^3/uL Mean Platelet Volume 12.4 H 7.4-10.4 FL Neutrophils (%) (Auto) 69 42-75 % Lymphocytes (%) (Auto) 23 12-44 % Monocytes (%) (Auto) 7 0-12 % Eosinophils (%) (Auto) 1 0-10 % Basophils (%) (Auto) 1 0-10 % Neutrophils # (Auto) 5.4 1.8-7.8 X 10^3 Lymphocytes # (Auto) 1.8 1.0-4.0 X 10^3 Monocytes # (Auto) 0.5 0.0-1.0 X 10^3 Eosinophils # (Auto) 0.1 0.0-0.3 10^3/uL Basophils # (Auto) 0.0 0.0-0.1 10^3/uL Sodium Level 141 135-145 MMOL/L Potassium Level 4.1 3.6-5.0 MMOL/L Chloride Level 108 H 98-107 MMOL/L Carbon Dioxide Level 23 21-32 MMOL/L Anion Gap 10 5-14 MMOL/L Blood Urea Nitrogen 13 7-18 MG/DL Creatinine 0.83 0.60-1.30 MG/DL Estimat Glomerular Filtration Rate > 60 BUN/Creatinine Ratio 16 Glucose Level 88 70-105 MG/DL Calcium Level 8.5 8.5-10.1 MG/DL Corrected Calcium 8.4 L 8.5-10.1 MG/DL Total Bilirubin 0.3 0.1-1.0 MG/DL Aspartate Amino Transf (AST/SGOT) 12 5-34 U/L Alanine Aminotransferase (ALT/SGPT) 11 0-55 U/L Alkaline Phosphatase 54 40-136 U/L Total Protein 6.9 6.4-8.2 GM/DL Albumin 4.1 3.2-4.5 GM/DL Serum Test, Qualitative NEGATIVE NEGATIVE Urine Color YELLOW Urine Clarity CLOUDY Urine pH 6.0 5-9 Urine Specific [place] 1.025 H 1.016-1.022 Urine Protein 1+ H NEGATIVE Urine Glucose (UA) NEGATIVE NEGATIVE Urine Ketones NEGATIVE NEGATIVE Urine Nitrite NEGATIVE NEGATIVE Urine Bilirubin NEGATIVE NEGATIVE Urine Urobilinogen 0.2 < = 1.0 MG/DL Urine Leukocyte Esterase TRACE H NEGATIVE Urine RBC (Auto) 3+ H NEGATIVE Urine RBC >100 H /HPF Urine WBC 5-10 H /HPF Urine Squamous Epithelial Cells 2-5 /HPF Urine Crystals NONE /LPF Urine Bacteria TRACE /HPF Urine Casts NONE /LPF Urine Mucus NEGATIVE /LPF Urine Culture Indicated YES My Orders Orders - BRENTON FROST DECONTAMINATION WORKER Cbc With Automated Diff (06/02/20 13:56) Comprehensive Metabolic Panel (06/02/20 13:56) Ua Culture If Indicated (06/02/20 13:56) Hcg,Qualitative Serum (06/02/20 13:56) Ns Iv 1000 Ml (Sodium Chloride 0.9%) (06/02/20 14:30) Ketorolac Injection (Toradol Injection) (06/02/20 14:30) Ct Abd/Pelvis Wo(Kidney Stone) (06/02/20 14:31) Urine Culture (06/02/20 15:11) Rocephin 1 Gm Iv (1x Dose) (06/02/20 15:45) Vital Signs/I&O 06/02/20 13:27 Temp 37.0 Pulse 65 Resp 18 B/P (MAP) 123/65 (84) Pulse Ox 100 O2 Delivery Room Air Blood Pressure Mean: 84 Departure Impression Primary Impression: right renal pelvis stone Additional Impression: Right sided abdominal pain Disposition: HOME, SELF-CARE Condition: Stable Departure-Patient Inst. Decision time for Depature: 15:38 Referrals: NO,LOCAL PHYSICIAN (PCP) Primary Care Physician PETEY ISBELL MD Patient Instructions: Kidney Stones (DC) Add. Discharge Instructions: 1. Antibiotic as directed 2. Pain medication as directed 3. Call Dr. Isbell to make an appointment to be seen for follow-up. Return to ER for any fevers intolerable pain or other concerns. All discharge instructions reviewed with patient and/or family. Voiced understanding. Scripts Cefuroxime Axetil (Cefuroxime) 250 Mg Tablet 250 MG PO BID, #10 TAB Prov: BRENTON FROST APRN 06/02/20 BRENTON FROST APRN Jun 02, 2020 14:34
[2020-06-02 14:35] LABS: BUN/CREATININE RATIO 16
[2020-06-02 14:37] LABS: ALANINE AMINOTRANSFERASE 11 U/L (0-55)
[2020-06-02 15:21] LABS: BILIRUBIN,URINE NEGATIVE (NEGATIVE); CLARITY,URINE CLOUDY; COLOR,URINE YELLOW; GLUCOSE, URINE (UA) NEGATIVE (NEGATIVE); KETONES,URINE NEGATIVE (NEGATIVE); LEUKOCYTE ESTERASE ,URINE TRACE (NEGATIVE); NITRITE,URINE NEGATIVE (NEGATIVE); PROTEIN,URINE 1+ (NEGATIVE)
[2020-06-02 15:29] LABS: BACTERIA,URINE TRACE /HPF; RBC,URINE >100 /HPF
[2020-06-02] MEDS ORDERED: CEFU250T80 PO (15:40)
[2020-06-02] MEDS ORDERED: cefTRIAXone FOR IV USE 1,000 MG in WATER (STERILE) FOR INJECTION 10 ML IV ONE (15:45)
--- NOTE | 2020-06-02 16:07 | Diagnostic Imaging Report ---
EXAMINATION: CT Abdomen Pelvis without contrast. TECHNIQUE: Multiple contiguous axial images were obtained through the abdomen and pelvis without the use of intravenous contrast. All CT scans use one or more of the following dose optimizing techniques: automated exposure control, MA and/or KvP adjustment based on a patient size and exam type, or iterative reconstruction. HISTORY: Right flank pain. COMPARISON: 02/26/2019. FINDINGS: Limited views of the lower thorax are unremarkable. The liver is normal without focal lesion. There is no biliary ductal dilation. Gallbladder is absent. Pancreas is normal. Spleen is normal. Adrenal glands are normal. There is a 7 mm right renal pelvis stone. This was previously at the ureteropelvic junction. There is no hydronephrosis, but there is a small amount of peripelvic stranding, decreased from prior exam. No ureteral stones are seen. There is a small nonobstructing left-sided stone. There is no hydronephrosis. Urinary bladder is normal. Visualized bowel is normal in caliber without obstruction or inflammation. There is diverticulosis without diverticulitis. No free fluid or air. No abdominal or pelvic lymphadenopathy. Aorta is normal in caliber without aneurysm. There are no suspicious osseous lesions. IMPRESSION: 1. Right renal pelvic stone is no longer at the ureteropelvic junction, but there is persistent stranding in the renal pelvis. This is likely intermittently obstructing. No ureteral stones are seen. Dictated by: Dictated on workstation # [id number]
[2020-06-02 16:32] VITALS: BP 122/80
== END 2020-06-02 16:32 | disposition home or self-care (01) ==
LOC: EDUNIT# 12:50 → ER 12:52
DX: N20.0 Calculus of kidney (principal); Z88.2 Allergy status to sulfonamides; Z88.1 Allergy status to other antibiotic agents; Z88.0 Allergy status to penicillin; Z88.5 Allergy status to narcotic agent; Z88.8 Allergy status to other drugs, medicaments and biological substances
CPT/HCPCS: 36415; 74176; 80053; 81000; 84703; 85025; 87088; 96361; 96374; 96375

== ENCOUNTER → 2020-06-16 | Outpatient (CLI) | payer OTHER ==
[~2020-06-16] MED LIST changes: +CEFU250T80 PO
--- NOTE | 2020-06-16 14:01 | Diagnostic Imaging Report ---
INDICATION: Kidney stones. TIME OF EXAM: 1:25 PM. COMPARISON: CT abdomen and pelvis study from 06/02/2020. FINDINGS: Calcific densities overlie both renal shadows, consistent with the previously seen bilateral renal calculi. No calculi are identified along the course of the ureters. The bowel gas pattern is nonobstructed. There are surgical clips in the gallbladder fossa. IMPRESSION: Bilateral nephrolithiasis. No definite ureteral calculi are identified. Dictated by: Dictated on workstation # [id number]
== END ==
LOC: LAB 13:06
PROVIDERS: ATTEND Urology
DX: N20.0 Calculus of kidney (principal)
CPT/HCPCS: 74018

== ENCOUNTER 2020-06-17 05:55 | Outpatient (CLI) | payer OTHER ==
[~2020-06-17] VITALS: Ht 154 cm; Wt 81.8 kg
== END 2020-06-18 12:02 ==
LOC: PREOP 05:55
PROVIDERS: ATTEND Urology
DX: Z01.818 Encounter for other preprocedural examination (principal)

== ENCOUNTER 2020-06-23 07:17 | Day surgery (SDC) | payer OTHER ==
[2020-06-23] VITALS (11 sets, daily range): BP systolic 116–141; BP diastolic 60–96
[~2020-06-23] VITALS: Ht 154 cm; Wt 81.8 kg
--- OUTSIDE RECORDS SUMMARY | 2020-06-23 07:21 | XMS REPORT | Continuity of Care Document ---
Author Organization Unknown Address Unknown Phone Unavailable Allergies Active Description Code Type Severity Reaction Onset Reported/Identified Relationship to Patient Clinical Status Yes ALL PAIN MEDS ALL PAIN MEDS Severe HIVES, SOA, VICTOR MANUEL 11/20/2018 Yes amoxicillin [id number] Drug Aller gy Severe SOA, HIVES, VICTOR MANUEL 11/20/2018 Yes ampicillin [id number] Drug Allerg y Severe SOA, HIVES, VICTOR MANUEL 11/20/2018 Yes codeine [id number] Drug Allergy Severe RASH, EDEMA 11/20/2018 Yes meperidine [id number] Drug Allerg y Severe RASH, SOA, GAGE 11/20/2018 Yes Penicillins [id number] Drug Aller gy Severe SOA, HIVES, VICTOR MANUEL 11/20/2018 Yes acetaminophen [id number] Saw g Allergy Unknown N/A 08/14/2019 Yes hydrocodone [id number] Drug Aller gy Unknown N/A 08/14/2019 Yes sulfamethoxazole [id number] Drug Allergy Unknown N/A 06/02/2020 Yes trimethoprim [id number] Drug Allergy Unknown N/A 06/02/2020 Yes acetaminophen [id number] Saw g Allergy Severe ANAPHYLAXIS 06/17/2020 Yes sulfamethoxazole [id number] Drug Allergy Severe ANAPHYLAXIS 06/17/2020 Yes trimethoprim [id number] Drug Allergy Severe ANAPHYLAXIS 06/17/2020 Yes hydrocodone [id number] Drug Aller gy Unknown ANAPHYLAXIS 06/17/2020 Medications There is no data. Problems Date Dx Coded Attending Type Code Diagnosis Diagnosed By 11/10/2018 MUNIRA ALANIZ DO Ot R11.2 NAUSEA WITH VOMITING, UNSPECIFIED 11/10/2018 MUNIRA ALANIZ DO K Ot R19.7 DIARRHEA, UNSPECIFIED 11/13/2018 MUNIRA ALANIZ DO K Ot R11.2 NAUSEA WITH VOMITING, UNSPECIFIED 11/13/2018 MUNIRA ALANIZ DO Ot R19.7 DIARRHEA, UNSPECIFIED 11/13/2018 KATTY DO, MUNIRA K Ot R11.2 NAUSEA WITH VOMITING, UNSPECIFIED 11/13/2018 KATTY DO, MUNIRA K Ot R19.7 DIARRHEA, UNSPECIFIED 11/20/2018 NASRIN, BRIT VÁSQUEZP Ot M25.572 PAIN IN LEFT ANKLE AND JOINTS OF LEFT FO 11/20/2018 NASRIN, BRIT EXTENSION SPECIALIST Ot S93.492A SPRAIN OF OTHER LIGAMENT OF LEFT ANKLE, 11/20/2018 NASRIN, BRIT EXTENSION SPECIALIST Ot S93.602A UNSPECIFIED SPRAIN OF LEFT FOOT, INITIAL 11/20/2018 NASRIN, BRIT EXTENSION SPECIALIST Ot X50.1XXA OVEREXERTION FROM PROLONGED STATIC OR AW 11/20/2018 NASRIN, BRIT EXTENSION SPECIALIST Ot Y92.[address] 11/20/2018 NASRIN, BRIT EXTENSION SPECIALIST Ot Y99.0 CIVILIAN ACTIVITY DONE FOR INCOME OR PAY 11/20/2018 NASRIN, BRIT EXTENSION SPECIALIST Ot Z87.891 PERSONAL HISTORY OF NICOTINE DEPENDENCE 11/20/2018 NASRIN, BRIT EXTENSION SPECIALIST Ot Z88.0 ALLERGY STATUS TO PENICILLIN 11/20/2018 NASRIN, BRIT EXTENSION SPECIALIST Ot Z88.5 ALLERGY STATUS TO NARCOTIC AGENT STATUS 11/20/2018 NASRIN, BRIT EXTENSION SPECIALIST Ot Z88.8 ALLERGY STATUS TO OT DRUG/MEDS/BIOL SUB 11/20/2018 NASRIN, BRIT EXTENSION SPECIALIST Ot Z98.51 TUBAL LIGATION STATUS 11/22/2018 NASRIN, BRIT EXTENSION SPECIALIST Ot M25.572 PAIN IN LEFT ANKLE AND JOINTS OF LEFT FO 11/22/2018 NASRIN, BRIT EXTENSION SPECIALIST Ot S93.492A SPRAIN OF OTHER LIGAMENT OF LEFT ANKLE, 11/22/2018 NASRIN, BRIT EXTENSION SPECIALIST Ot S93.602A UNSPECIFIED SPRAIN OF LEFT FOOT, INITIAL 11/22/2018 NASRIN, BRIT EXTENSION SPECIALIST Ot X50.1XXA OVEREXERTION FROM PROLONGED STATIC OR AW 11/22/2018 NASRIN, BRIT EXTENSION SPECIALIST Ot Y92.[address] 11/22/2018 NASRIN, BRIT EXTENSION SPECIALIST Ot Y99.0 CIVILIAN ACTIVITY DONE FOR INCOME OR PAY 11/22/2018 NASRIN, BRIT EXTENSION SPECIALIST Ot Z87.891 PERSONAL HISTORY OF NICOTINE DEPENDENCE 11/22/2018 NASRIN, BRIT EXTENSION SPECIALIST Ot Z88.0 ALLERGY STATUS TO PENICILLIN 11/22/2018 NASRIN, BRIT EXTENSION SPECIALIST Ot Z88.5 ALLERGY STATUS TO NARCOTIC AGENT STATUS 11/22/2018 NASRIN BRIT EXTENSION SPECIALIST Ot Z88.8 ALLERGY STATUS TO OTH DRUG/MEDS/BIOL SUB 11/22/2018 NASRINBRIT EXTENSION SPECIALIST Ot Z98.51 TUBAL LIGATION STATUS 02/26/2019 BRENTON FROST SINK CUTTER Ot N13 .2 HYDRONEPHROSIS WITH RENAL AND URETERAL C 02/26/2019 BRENTON FROST SINK CUTTER Ot R10.11 RIGHT UPPER QUADRANT PAIN 02/26/2019 BRENTON FROST SINK CUTTER Ot Z88 .0 ALLERGY STATUS TO PENICILLIN 02/26/2019 BRENTON FROST SINK CUTTER Ot Z88 .5 ALLERGY STATUS TO NARCOTIC AGENT STATUS 02/26/2019 BRENTON FROST SINK CUTTER Ot Z88 .8 ALLERGY STATUS TO OTH DRUG/MEDS/BIOL SUB 02/26/2019 BRENTON FROST APRN Ot Z98.51 TUBAL LIGATION STATUS 02/28/2019 BRENTON FROST APRN Ot N13 .2 HYDRONEPHROSIS WITH RENAL AND URETERAL C 02/28/2019 BRENTON FROST APRN Ot R10.11 RIGHT UPPER QUADRANT PAIN 02/28/2019 BRENTON FROST APRN Ot Z88 .0 ALLERGY STATUS TO PENICILLIN 02/28/2019 BRENTON FROST SINK CUTTER Ot Z88 .5 ALLERGY STATUS TO NARCOTIC AGENT STATUS 02/28/2019 BRENTON FROST SINK CUTTER Ot Z88 .8 ALLERGY STATUS TO OTH DRUG/MEDS/BIOL SUB 02/28/2019 BRENTON FROST SINK CUTTER Ot Z98.51 TUBAL LIGATION STATUS 07/20/2019 ANTHONY SMITH, TIBURCIO Jules Ot H60. 92 UNSPECIFIED OTITIS EXTERNA, LEFT EAR 07/20/2019 TIBURCIO CRUZ MD Ot H92. 02 OTALGIA, LEFT EAR 07/20/2019 ANTHONY SMITH, TIBURCIO Jules Ot Z87.891 PERSONAL HISTORY OF NICOTINE DEPENDENCE 07/20/2019 TIBURCIO CRUZ MD Ot Z88. 0 ALLERGY STATUS TO PENICILLIN 07/20/2019 TIBURCIO CRUZ MD Ot Z88. 1 ALLERGY STATUS TO OTHER ANTIBIOTIC AGENT 07/20/2019 TIBURCIO CRUZ MD Ot Z88. 5 ALLERGY STATUS TO NARCOTIC AGENT STATUS 07/20/2019 TIBURCIO CRUZ MD Ot Z98. 51 TUBAL LIGATION STATUS 07/24/2019 ANTHONY SMITH, TIBURCIO Jules Ot H60. 92 UNSPECIFIED OTITIS EXTERNA, LEFT EAR 07/24/2019 ANTHONY SMITH, TIBURCIO Jorge A Ot H92. 02 OTALGIA, LEFT EAR 07/24/2019 ANTHONY SMITH, TIBURCIO Jules Ot Z87.891 PERSONAL HISTORY OF NICOTINE DEPENDENCE 07/24/2019 ANTHONY SMITH, TIBURCIO Jorge A Ot Z88. 0 ALLERGY STATUS TO PENICILLIN 07/24/2019 ANTHONY SMITH, TIBURCIO Jules Ot Z88. 1 ALLERGY STATUS TO OTHER ANTIBIOTIC AGENT 07/24/2019 ANTHONY SMITH, TIBURCIO Jorge A Ot Z88. 5 ALLERGY STATUS TO NARCOTIC AGENT STATUS 07/24/2019 ANTHONY SMITH, TIBURCIO Jorge A Ot Z98. 51 TUBAL LIGATION STATUS 08/14/2019 ANTHONY SMITH, TIBURCIO Jules Ot L03.115 CELLULITIS OF RIGHT LOWER LIMB 08/14/2019 ANTHONY SMITH, TIBURCIO Jorge A Ot Z87.891 PERSONAL HISTORY OF NICOTINE DEPENDENCE 08/14/2019 ANTHONY SMITH, TIBURCIO Jules Ot Z88. 0 ALLERGY STATUS TO PENICILLIN 08/14/2019 ANTHONY SMITH, TIBURCIO Jules Ot Z88. 1 ALLERGY STATUS TO OTHER ANTIBIOTIC AGENT 08/14/2019 ANTHONY SMITH, TIBURCIO Jules Ot Z88. 5 ALLERGY STATUS TO NARCOTIC AGENT STATUS 08/14/2019 ANTHONY SMITH, TIBURCIO Jules Ot Z88. 6 ALLERGY STATUS TO ANALGESIC AGENT STATUS 08/14/2019 ANTHONY SMITH, TIBURCIO Jorge A Ot Z98. 51 TUBAL LIGATION STATUS 08/16/2019 ANTHONY SMITH, TIBURCIO Jorge A Ot L03.115 CELLULITIS OF RIGHT LOWER LIMB 08/16/2019 ANTHONY SMITH, TIBURCIO Jorge A Ot Z87.891 PERSONAL HISTORY OF NICOTINE DEPENDENCE 08/16/2019 ANTHONY SMITH, TIBURCIO Jules Ot Z88. 0 ALLERGY STATUS TO PENICILLIN 08/16/2019 ANTHONY SMITH, TIBURCIO Jules Ot Z88. 1 ALLERGY STATUS TO OTHER ANTIBIOTIC AGENT 08/16/2019 ANTHONY SMITH, TIBURCIO Jules Ot Z88. 5 ALLERGY STATUS TO NARCOTIC AGENT STATUS 08/16/2019 ANTHONY SMITH, TIBURCIO Jules Ot Z88. 6 ALLERGY STATUS TO ANALGESIC AGENT STATUS 08/16/2019 ANTHONY SMITH, TIBURCIO Jules Ot Z98. 51 TUBAL LIGATION STATUS 06/04/2020 BRENTON FROST APRN Ot N20 .0 CALCULUS OF KIDNEY 06/04/2020 BRENTON FROST APRN Ot R10.31 RIGHT LOWER QUADRANT PAIN 06/04/2020 BRENTON FROST APRN Ot Z88 .0 ALLERGY STATUS TO PENICILLIN 06/04/2020 BRENTON FROST APRN Ot Z88 .1 ALLERGY STATUS TO OTHER ANTIBIOTIC AGENT 06/04/2020 BRENTON FROST APRN Ot Z88 .2 ALLERGY STATUS TO SULFONAMIDES STATUS 06/04/2020 BRENTON FROST APRN Ot Z88 .5 ALLERGY STATUS TO NARCOTIC AGENT STATUS 06/04/2020 BRENTON FROST APRN Ot Z88 .8 ALLERGY STATUS TO OTH DRUG/MEDS/BIOL SUB 06/18/2020 PETEY ISBELL MD Ot N20.0 CALCULUS OF KIDNEY 06/18/2020 PETEY ISBELL MD Ot Z01.8 18 ENCOUNTER FOR OTHER PREPROCEDURAL EXAMIN Procedures There is no data. Results Test [...] urinalysis with reflex to culture NO NRG Complete blood count (CBC) with automate d white blood cell (WBC) differential - 06/02/20 14:14 Blood leukocytes automated count (number/volume) 7.8 10*3/uL 4.3-11.0 Blood erythrocytes automated count (number/volume) 4.54 10*6/uL 4.35-5.85 Venous blood hemoglobin measurement (mass/volume) 10.6 g/dL 11.5-16.0 Blood hematocrit (volume fraction) 34 % 35-52 Automated erythrocyte mean corpuscular volume 76 [ foz_us] 80-99 Automated erythrocyte mean corpuscular h emoglobin (mass per erythrocyte) 23 pg 25-34 Automated erythrocyte mean corpuscular h emoglobin concentration measurement (mass/volume) 31 g/dL 32-36 Automated erythrocyte distribution width ratio 16. 1 % 10.0- 14.5 Automated blood platelet count (count/volume) 258 10*3/uL 130-400 Automated blood platelet mean volume measurement 12.4 [foz_us] 7.4-10.4 Automated blood neutrophils/100 leukocytes 69 % 42-75 Automated blood lymphocytes/100 leukocytes 23 % 12-44 Blood monocytes/100 leukocytes 7 % 0-12 Automated blood eosinophils/100 leukocytes 1 % 0-10 Automated blood basophils/100 leukocytes 1 % 0-10 Blood neutrophils automated count (number/volume) 5.4 10*3 1.8-7.8 Blood lymphocytes automated count (number/volume) 1.8 10*3 1.0-4.0 Blood monocytes automated count (number/volume) 0. 5 10*3 0.0-1.0 Automated eosinophil count 0.1 10*3/uL 0 .0-0.3 Automated blood basophil count (count/volume) 0.0 10*3/uL 0.0-0.1 Comprehensive metabolic panel - 06/02/20 14:14 Serum or plasma sodium measurement (moles/volume) 141 mmol/L 135-145 Serum or plasma potassium measurement (moles/volume) 4.1 mmol/L 3.6-5.0 Serum or plasma chloride measurement (moles/volume) 108 mmol/L 98-107 Carbon dioxide 23 mmol/L 21-32 Serum or plasma anion gap determination (moles/volume) 10 mmol/L 5-14 Serum or plasma urea nitrogen measurement (mass/volume ) 13 mg/dL 7-18 Serum or plasma creatinine measurement (mass/volume) 0.83 mg/dL 0.60-1.30 Serum or plasma urea nitrogen/creatinine mass ratio 16 NRG Serum or plasma creatinine measurement w ith calculation of estimated glomerular filtration rate > NRG Serum or plasma glucose measurement (mass/volume) 88 mg/dL 70-105 Serum or plasma calcium measurement (mass/volume) 8.5 mg/dL 8.5-10.1 Serum or plasma total bilirubin measurement (mass/volu me) 0.3 mg/dL 0.1-1.0 Serum or plasma alkaline phosphatase tierra surement (enzymatic activity/volume) 54 U/L 40-136 Serum or plasma aspartate aminotransfera se measurement (enzymatic activity/volume) 12 U/L 5-34 Serum or plasma alanine aminotransferase measurement (enzymatic activity/volume) 11 U/L 0-55 Serum or plasma protein measurement (mass/volume) 6.9 g/dL 6.4-8.2 Serum or plasma albumin measurement (mass/volume) 4.1 g/dL 3.2-4.5 CALCIUM CORRECTED 8.4 mg/dL 8.5-10.1 Serum or plasma choriogonadotropin (preg adiel test) detection - 06/02/20 14:14 Serum or plasma choriogonadotropin ( test) de tection NEGATIVE NEGATIVE Complete urinalysis with reflex to cultu re - 06/02/20 15:11 Urine color determination YELLOW NRG Urine clarity determination CLOUDY NR G Urine pH measurement by test strip 6.0 5-9 Specific gravity of urine by test strip 1.025 1.016-1.022 Urine protein assay by test strip, semi-quantitative 1+ NEGATIVE Urine glucose detection by automated test strip NE GATIVE NEGATIVE Erythrocytes detection in urine sediment by light micr oscopy 3+ NEGATIVE Urine ketones detection by automated test strip NE GATIVE NEGATIVE Urine nitrite detection by test strip NEGATIVE NEGATIVE Urine total bilirubin detection by test strip NEGA TIVE NEGATIVE Urine urobilinogen measurement by automated test strip (mass/volume) 0.2 mg/dL < = 1.0 Urine leukocyte esterase detection by dipstick TRA CE NEGATIVE Automated urine sediment erythrocyte cou nt by microscopy (number/high power field) > [HPF] NRG Automated urine sediment leukocyte count by microscopy (number/high power field) [HPF] NRG Bacteria detection in urine sediment by light microsco py TRACE NRG Squamous epithelial cells detection in u rine sediment by light microscopy 2-5 NRG Crystals detection in urine sediment by light microsco py NONE NRG Casts detection in urine sediment by light microscopy NONE NRG Mucus detection in urine sediment by light microscopy NEGATIVE NRG Complete urinalysis with reflex to culture YES NRG Bacterial urine culture - 06/02/20 15:11 Bacterial urine culture NG NRG Encounters ACCT No. Visit Date/Time Discharge Status Pt. Type Provider Facility Loc./Unit Complaint [id number] 06/02/2020 11:50:00 06/02/2020 23:59: 59 CLS Outpatient [facility] [id number] 06/17/2020 05:55:00 12:02:00 DIS Outpatient PETEY ISBELL MD [facility] PREOP RT ESWL;POSS RT URTEROSCOPY/BASKET/STENT [id number] 06/16/2020 13:06:00 23:59:59 CLS Outpatient PETEY ISBELL MD [facility] RAD RT RENAL STONE [id number] 06/02/2020 12:52:00 16:32:00 DIS Outpatient BRENTON FROST APRN [facility] ER POSSIBLE APPENDICITIS [id number] 08/14/2019 09:53:00 11:45:00 DIS Emergency ANTHONY SMITH, TIBURCIO Jules [facility] ER R LEG INJ [id number] 07/20/2019 14:59:00 15:38:00 DIS Emergency TIBURCIO CRUZ MD [facility] ER L EAR PAIN [id number] 02/26/2019 12:24:00 15:18:00 DIS Emergency BRENTON FROST APRN [facility] ER R SIDE PAIN [id number] 11/20/2018 13:53:00 15:20:00 DIS Emergency BRIT ALEXANDRA [facility] ER L FOOT INJ [id number] 11/10/2018 17:00:00 18:11:00 DIS Emergency MUNIRA ALANIZ DO a [facility] ER N/V/D/ NEEDS DOCTOR'S N OTE [id number] 06/23/2020 11:45:00 P EN Preadaurea ISBELL MD, PETEY Haskins [facility] SDC RIGHT RENAL STONE
[2020-06-23] MEDS: LACTATED RINGERS 1,000 ML IV PRN ×2 (07:57→10:39)
[2020-06-23] MEDS ORDERED: LEVOFLOXACIN 250 MG/50 ML IVPB 50 ML IV ONE ×2 (08:00→08:45)
--- NOTE | 2020-06-23 08:00 | Progress Note-Pre Operative ---
Pre-Operative Progress Note H&P Reviewed The H&P was reviewed, patient examined and no changes noted. Date Seen by Provider: Jun 23, 2020 Time Seen by Provider: 08:00 Date H&P Reviewed: Jun 23, 2020 Time H&P Reviewed: 08:00 Pre-Operative Diagnosis: RT RENAL STONE PETEY ISBELL MD Jun 23, 2020 08:00
--- NOTE | 2020-06-23 08:03 | Progress Note-Post Operative ---
Post-Operative Progess Note Surgeon (s)/Nursing Informatics Clinical Analyst (s) Surgeon PETEY ISBELL MD Nursing Informatics Clinical Analyst: NONE Pre-Operative Diagnosis RT RENAL STONE Post-Operative Diagnosis SAME Procedure & Operative Findings Date of Procedure 06/23/20 Procedure Performed/Findings RT ESWL Anesthesia Type GENERAL Estimated Blood Loss Estimated blood loss (mL): NONE Specimens/Packing Specimens Removed NONE Packing: NONE PETEY ISBELL MD Jun 23, 2020 08:03
--- NOTE | 2020-06-23 08:05 | Discharge Inst-Urology ---
Discharge Inst-Urology Reconcile Patient Problems Problems Reviewed?: Yes Final Diagnosis RT RENAL STONE Patient Instructions/Follow Up Plan/Assessment/Instructions Please make appointment to been seen in office in 2 weeks, KUB prior to it KUB on way home Post ESWL instructions Increase oral fluids for 48 hours and then as needed. Diet and Activity as tolerated. If questions or concerns contact your physician Or seek help at emergency department. PETEY ISBELL MD Jun 23, 2020 08:05
--- NOTE | 2020-06-23 08:45 | Diagnostic Imaging Report ---
EXAMINATION: Abdominal radiographs, single supine view. DATE: June 23, 2020. CLINICAL INDICATION: 44-year-old female, preoperative exam. Right renal stone. COMPARISON: June 16, 2020. COMMENTS: There is a calcification overlying the right kidney measuring 10 mm in size which is unchanged since the comparison exam and likely reflects a right renal stone. There is also a smaller probable left renal stone measuring 5 mm in size. There is no identified abnormal radiodensity projecting over the expected positions of either ureter. There are no abnormally distended gas-filled segments of bowel. There are right upper quadrant abdominal surgical clips. IMPRESSION: Bilateral renal stones with the right renal stone measuring larger in size compared to the left. Dictated by: Dictated on workstation # [id number]
[2020-06-23] MEDS ORDERED: MIDAZOLAM 2 MG/2 ML (VERSED) VIAL ONE (09:33)
[2020-06-23] MEDS ORDERED: fentaNYL INJECTION 100 MCG/2 ML AMP ONE (09:34)
[2020-06-23] MEDS ORDERED: FUROSEMIDE 40 MG/4 ML INJ (LASIX) ONE (09:50)
[2020-06-23] MEDS ORDERED: SEVOFLURANE (ULTANE) 15 ML INHAL SOLN ONE (09:50)
[2020-06-23] MEDS ORDERED: KETOROLAC 30 MG/ML VIAL ONE (09:50)
[2020-06-23] MEDS ORDERED: ONDANSETRON 4 MG/2 ML (SDV) Z0FRAN ONE (09:50)
[2020-06-23] MEDS ORDERED: LIDOCAINE PF 2% 5 ML (XYLOCAINE) VIAL ONE (09:50)
[2020-06-23] MEDS ORDERED: proPOfol 200 MG/20 ML (DIPRIVAN) VIAL IV ONE (09:50)
[2020-06-23] MEDS ORDERED: ONDANSETRON 4 MG/2 ML (SDV) Z0FRAN IVP PRN (10:30)
[2020-06-23] MEDS ORDERED: fentaNYL INJECTION 100 MCG/2 ML AMP IVP ONE (10:30)
--- NOTE | 2020-06-23 12:09 | OPERATIVE REPORT ---
DATE OF SERVICE: 06/23/2020 PREOPERATIVE DIAGNOSIS: Right renal stone. POSTOPERATIVE DIAGNOSIS: Right renal stone. OPERATION PERFORMED: Right ESWL. SURGEON: Salvatore Isbell MD ANESTHESIA: General. COMPLICATIONS: None. DESCRIPTION OF PROCEDURE: Under satisfactory general anesthesia, the patient in supine position on the ESWL table, the right renal stone was localized. Shocks were delivered at kV of 6, a total of 2500 shocks completely fragmented the stone that was not visualized. The patient received 40 mg of Lasix and 30 mg of Toradol IV at the end of the procedure. She tolerated the procedure and anesthesia well and was sent to recovery room in stable condition. Job ID: [id number] DocumentID: [id number] Dictated Date: 06/23/2020 10:13:49 Nursery Worker Date: 06/23/2020 12:07:52 Dictated By: SALVATORE ISBELL MD
--- NOTE | 2020-06-23 12:30 | Diagnostic Imaging Report ---
INDICATION: Nephrolithiasis KUB 12:22 PM The right pleural calculus is no fragment into several small stones. Left renal calculus is unchanged. There is a 1 small calculus at the right ureterovesical junction. IMPRESSION: Bilateral nephrolithiasis. The right renal pelvic calculus appears to undergone a fragmentation. Dictated by: Dictated on workstation # [id number]
--- NOTE | 2020-06-23 14:21 | Anesthesia-General Post-Op ---
General Patient Condition Mental Status/LOC: Same as Preop Cardiovascular: Satisfactory Nausea/Vomiting: Absent Respiratory: Satisfactory Pain: Controlled Complications: Absent Post Op Complications Complications None Follow Up Care/Instructions Patient Instructions None needed. Anesthesia/Patient Condition Patient Condition Patient was seen this morning after the procedure and she was doing well, no complaints, stable vital signs, no apparent adverse anesthesia problems. LYNETTE LUCERO DO Jun 23, 2020 14:21
[2020-06-26] MEDS ORDERED: TRM50T PO (21:59)
== END 2020-06-23 12:30 | disposition home or self-care (01) ==
LOC: SDC 07:17
PROVIDERS: ATTEND Urology
DX: N20.0 Calculus of kidney (principal); K21.9 Gastro-esophageal reflux disease without esophagitis; F41.9 Anxiety disorder, unspecified; Z79.899 Other long term (current) drug therapy; Z88.0 Allergy status to penicillin; Z88.1 Allergy status to other antibiotic agents; Z88.5 Allergy status to narcotic agent; Z88.2 Allergy status to sulfonamides; Z88.8 Allergy status to other drugs, medicaments and biological substances
CPT/HCPCS: 74018; 84703; 87081

== ENCOUNTER → 2020-07-08 | Outpatient (CLI) | payer OTHER ==
[~2020-07-08] MED LIST changes: +TRM50T PO
--- NOTE | 2020-07-08 14:42 | Diagnostic Imaging Report ---
EXAMINATION: Supine abdomen at 01:51 p.m. INDICATION: Nephrolithiasis. FINDINGS: The prior exam of 06/26/2020 noted multiple small calculi low in the pelvis on the right. Those calculi are no longer evident on this study. There are a few small calcific densities low in the pelvis on the left. These are unchanged when compared to the prior exam. The calcification overlying the left kidney seen previously is again evident and no different. There are no other pathological calcifications noted. There is no acute abnormality of the abdomen identified. IMPRESSION: 1. The calculi overlying the right pelvis seen on the prior exam are no longer evident. 2. There is still a calcification overlying the left kidney. Dictated by: Dictated on workstation # [id number]
== END ==
LOC: RAD 13:43
PROVIDERS: ATTEND Urology
DX: N20.0 Calculus of kidney (principal); N28.89 Other specified disorders of kidney and ureter
CPT/HCPCS: 74018

== ENCOUNTER 2021-07-18 12:04 | Emergency (ER) | payer OTHER ==
[~2021-07-18] VITALS: Ht 157.4 cm; Wt 81.6 kg
[~2021-07-18 12:04] MED LIST changes: -SULF1TAB35 PO; +SULF1TAB38 PO
--- NOTE | 2021-07-18 12:44 | ED GI ---
General Chief Complaint: Abdominal/GI Problems Stated Complaint: L SIDE PAIN Nursing Triage Note: C/O STABBING PAIN THAT STARTED AT 3AM. PAIN CAUSED NAUSEA AN DSOME VOMITING. STATES SHE HAS A HX OF KIDNEY STONE AND WONDERS IF THIS IS WHAT IS HAPPENING. Source of Information: Patient Exam Limitations: No Limitations History of Present Illness Date Seen by Provider: Jul 18, 2021 Time Seen by Provider: 12:44 Allergies and Home Medications Allergies Coded Allergies: Penicillins (Verified Allergy, Severe, SOA, HIVES, EDEMA, 11/20/18) acetaminophen (Verified Allergy, Severe, ANAPHYLAXIS, 06/17/20) amoxicillin (Verified Allergy, Severe, SOA, HIVES, EDEMA, 11/20/18) ampicillin (Verified Allergy, Severe, SOA, HIVES, EDEMA, 11/20/18) codeine (Verified Allergy, Severe, RASH, EDEMA, 11/20/18) meperidine (Verified Allergy, Severe, RASH, SOA, EDEMA, 11/20/18) sulfamethoxazole (Verified Allergy, Severe, ANAPHYLAXIS, 06/17/20) trimethoprim (Verified Allergy, Severe, ANAPHYLAXIS, 06/17/20) hydrocodone (Verified Allergy, Unknown, ANAPHYLAXIS, 06/17/20) Uncoded Allergies: ALL PAIN MEDS (Allergy, Severe, HIVES, SOA, EDEMA, 11/20/18) Patient Home Medication List Tramadol HCl (Tramadol HCl) 50 Mg Tablet, 50 MG PO Q6H PRN for PAIN Prescribed by: BRIT ALEXANDRA on 06/26/20 2200 Past Ychpklo-Ulxedt-Euoydq Hx Patient Social History Tobacco Use?: No Use of E-Cig and/or Vaping dev: No Substance use?: No Alcohol Use?: No Pt feels they are or have been: No Immunizations Up To Date Tetanus Booster (TDap): Unknown PED Vaccines UTD: Yes Seasonal Allergies Seasonal Allergies: Yes Past Medical History Surgeries: Yes (KIDNEY) Gallbladder, Tubal Ligation Respiratory: No Cardiac: No 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 Sexually Transmitted Disease: No HIV/AIDS: No Genitourinary: Yes Kidney Stones Gastrointestinal: Yes Gastroesophageal Reflux Musculoskeletal: Yes Arthritis Endocrine: No HEENT: Yes (READING GLASSES) Loss of Vision: Denies Hearing Impairment: Denies Cancer: No Psychosocial: Yes Anxiety Integumentary: Yes Eczema Blood Disorders: No Adverse Reaction/Blood Tranf: No (N/A) Physical Exam Vital Signs Vital Signs - First Documented 07/18/21 12:23 Temp 35.7 Pulse 81 Resp 18 B/P (MAP) 120/89 (99) Pulse Ox 96 O2 Delivery Room Air Capillary Refill : Less Than 3 Seconds Height/Weight/BMI Height: 5'1.00" Weight: 169lbs. oz. 76.486711bn; 32.00 BMI Method:Stated Progress/Results/Core Measures Results/Orders Lab Results Laboratory Tests Test 07/18/21 13:05 Range/Units Urine Color YELLOW Urine Clarity SL CLOUDY Urine pH 6.5 5-9 Urine Specific Gerry 1.020 1.016-1.022 Urine Protein NEGATIVE NEGATIVE Urine Glucose (UA) NEGATIVE NEGATIVE Urine Ketones NEGATIVE NEGATIVE Urine Nitrite NEGATIVE NEGATIVE Urine Bilirubin NEGATIVE NEGATIVE Urine Urobilinogen 0.2 < = 1.0 MG/DL Urine Leukocyte Esterase NEGATIVE NEGATIVE Urine RBC (Auto) 3+ H NEGATIVE Urine RBC 25-50 H /HPF Urine WBC RARE /HPF Urine Squamous Epithelial Cells 25-50 H /HPF Urine Crystals NONE /LPF Urine Bacteria MODERATE H /HPF Urine Casts NONE /LPF Urine Mucus NEGATIVE /LPF Urine Culture Indicated NO My Orders Orders - GRIS MEYERS MOBILITY SCOOTER REPAIRER Ua Culture If Indicated (07/18/21 12:16) Ketorolac Injection (Toradol Injection) (07/18/21 12:45) Urine Bedside (07/18/21 12:31) Abdomen/Kub 1view (07/18/21 12:31) Ed Iv/Invasive Line Start (07/18/21 12:31) Ondansetron Injection (Zofran Injectio (07/18/21 12:45) Ns Iv 500 Ml (Sodium Chloride 0.9%) (07/18/21 13:30) Medications Given in ED Current Medications Medications Dose Ordered Sig/Beatris Route Start Time Stop Time Status Last Admin Dose Admin Ketorolac Tromethamine 30 mg ONCE ONCE IVP 07/18/21 12:45 07/18/21 12:46 DC 07/18/21 12:49 30 MG Ondansetron HCl 4 mg ONCE ONCE IVP 07/18/21 12:45 07/18/21 12:46 DC 07/18/21 12:48 4 MG Sodium Chloride 500 ml @ 30 mls/hr [id number] ONCE IV 07/18/21 13:30 07/19/21 06:09 07/18/21 13:40 30 MLS/HR Vital Signs/I&O 07/18/21 12:23 Temp 35.7 Pulse 81 Resp 18 B/P (MAP) 120/89 (99) Pulse Ox 96 O2 Delivery Room Air Blood Pressure Mean: 99 Departure Impression Primary Impression: Left renal stone Disposition: HOME, SELF-CARE Condition: Improved Departure-Patient Inst. Decision time for Depature: 13:52 Referrals: NO,LOCAL PHYSICIAN (PCP/Family) Primary Care Physician Patient Instructions: Kidney Stone Diet, Kidney Stone, Adult ED Add. Discharge Instructions: Plan: 1. Drink plenty of fluids. You can strain your urine to monitor for passing of stone. 2. May take Ibuprofen 600mg every 6 hours as needed for pain. 3. Use Tramadol as directed for breakthrough pain. 4. Call Dr. Morfin office for follow up. 5. Return for any new, concerning, or worsening symptoms. All discharge instructions reviewed with patient and/or family. Voiced understanding. Scripts Tramadol HCl (Tramadol HCl) 50 Mg Tablet 50 MG PO Q6H PRN for PAIN for 3 Days, #12 TAB 0 Refills Prov: GRIS MEYERS APRN 07/18/21 GRIS MEYERS MOBILITY SCOOTER REPAIRER Jul 18, 2021 12:44
[2021-07-18] MEDS ORDERED: ONDANSETRON 4 MG/2 ML (SDV) Z0FRAN IVP ONE (12:45)
[2021-07-18] MEDS ORDERED: KETOROLAC 30 MG/ML VIAL IVP ONE (12:45)
[2021-07-18 13:16] LABS: BILIRUBIN,URINE NEGATIVE (NEGATIVE); CLARITY,URINE SL CLOUDY; COLOR,URINE YELLOW; GLUCOSE, URINE (UA) NEGATIVE (NEGATIVE); KETONES,URINE NEGATIVE (NEGATIVE); LEUKOCYTE ESTERASE ,URINE NEGATIVE (NEGATIVE); NITRITE,URINE NEGATIVE (NEGATIVE); PH,URINE 6.5 (5-9); PROTEIN,URINE NEGATIVE (NEGATIVE)
[2021-07-18 13:24] LABS: RBC,URINE 25-50 /HPF
[2021-07-18 13:25] LABS: BACTERIA,URINE MODERATE /HPF; SQUAMOUS EPITHELIAL CELL,UR 25-50 /HPF; WBC,URINE RARE /HPF
[2021-07-18] MEDS ORDERED: NS IV 500 ML 500 ML IV ONE (13:30)
--- NOTE | 2021-07-18 13:37 | Diagnostic Imaging Report ---
REASON FOR EXAM: Abdominal pain. COMPARISON: 07/08/2020. TECHNIQUE: 2 views of the abdomen FINDINGS: The calculus overlying the inferior pole of the left kidney is again noted. No calculi are seen overlying the right kidney. A moderate amount of stool seen in the colon. No evidence of bowel obstruction. No calculi are seen overlying the pelvis. IMPRESSION: Stable calculus overlying the inferior pole of the left kidney. Dictated by: Dictated on workstation # [id number]
[2021-07-18] MEDS ORDERED: TRM50T PO (13:54)
[2021-07-18 14:05] VITALS: BP 146/91
== END 2021-07-18 14:05 | disposition home or self-care (01) ==
LOC: EDUNIT# 12:04 → ER 12:06
DX: N20.0 Calculus of kidney (principal)
CPT/HCPCS: 74018; 81000; 84703

== ENCOUNTER → 2022-03-01 | Outpatient (CLI) | payer OTHER ==
--- NOTE | 2022-03-01 14:39 | Diagnostic Imaging Report ---
Indication: Routine screening. No prior mammograms are available for comparison. 2-D and 3-D bilateral screening mammography was performed with CAD. CAD is utilized. The current study was also evaluated with a Computer Aided Detection (CAD) system. Scattered fibroglandular densities are identified bilaterally. No mass or malignant-appearing microcalcifications are seen. Axillae are unremarkable. Occasional benign calcifications are noted. IMPRESSION: BI-RADS Category 2 No mammographic features suspicious for malignancy are identified. ACR BI-RADS Category 2: Benign findings. Result letter will be mailed to the patient. Note: At least 10% of breast cancer is not imaged by mammography. Dictated by: Dictated on workstation # [id number]
== END ==
LOC: RAD 10:30
PROVIDERS: ATTEND Family Medicine
DX: Z12.31 Encounter for screening mammogram for malignant neoplasm of breast (principal)
CPT/HCPCS: 77063; 77067

== ENCOUNTER 2022-06-29 13:11 | Emergency (ER) | payer OTHER ==
[~2022-06-29] VITALS: Ht 157 cm; Wt 77.1 kg
--- NOTE | 2022-06-29 13:38 | ED Cough/URI ---
General Chief Complaint: COVID19 Suspect/Confirmed Stated Complaint: HEADACHE/NAUSEA/BODYACHES/DIARRHEA Source: patient Exam Limitations: no limitations History of Present Illness Date Seen by Provider: Jun 29, 2022 Time Seen by Provider: 13:35 Initial Comments Patient is a 46-year-old female with a history of GERD who presents ED with flulike symptoms. Symptoms started yesterday with body aches chills fatigue weakness headache sore throat with mild cough. She states her tested positive for COVID over the weekend. She has been taking Aleve for her headache. She is currently on a PPI for her GERD. She has had some intermittent vomiting and diarrhea with nausea. She states she is tolerating p.o. fluids and feels hydrated. She is requesting a COVID swab at this time. Denies any neck pain, visual changes, unilateral muscle weakness or sensory changes, chest pain, abdominal pain, dysuria, and hematuria Allergies and Home Medications Allergies Coded Allergies: Penicillins (Verified Allergy, Severe, SOA, HIVES, EDEMA, 11/20/18) acetaminophen (Verified Allergy, Severe, ANAPHYLAXIS, 06/17/20) amoxicillin (Verified Allergy, Severe, SOA, HIVES, EDEMA, 11/20/18) ampicillin (Verified Allergy, Severe, SOA, HIVES, EDEMA, 11/20/18) codeine (Verified Allergy, Severe, RASH, EDEMA, 11/20/18) meperidine (Verified Allergy, Severe, RASH, SOA, EDEMA, 11/20/18) sulfamethoxazole (Verified Allergy, Severe, ANAPHYLAXIS, 06/17/20) trimethoprim (Verified Allergy, Severe, ANAPHYLAXIS, 06/17/20) hydrocodone (Verified Allergy, Unknown, ANAPHYLAXIS, 06/17/20) Uncoded Allergies: ALL PAIN MEDS (Allergy, Severe, HIVES, SOA, EDEMA, 11/20/18) Patient Home Medication List Home Medication List Reviewed: Yes Nirmatrelvir/Ritonavir (Paxlovid Co-Pack (Eua)) 150 Mg X 2-100 Mg Tablet, 1 EACH PO UD Prescribed by: ZAY MALDONADO on 06/29/22 1420 Tramadol HCl (Tramadol HCl) 50 Mg Tablet, 50 MG PO Q6H PRN for PAIN Prescribed by: BRIT ALEXANDRA on 06/26/20 2200 Tramadol HCl (Tramadol HCl) 50 Mg Tablet, 50 MG PO Q6H PRN for PAIN Prescribed by: GRIS MEYERS on 07/18/21 0142 Review of Systems Review of Systems Constitutional: No chills; malaise, weakness EENTM: throat pain; No hearing loss, No ear pain, No blurred vision, No double vision Respiratory: cough; No dyspnea on exertion Cardiovascular: No chest pain Gastrointestinal: No abdominal pain; diarrhea, nausea, vomiting Genitourinary: No decreased output, No discharge Musculoskeletal: No back pain, No joint pain Skin: No change in color, No change in hair/nails All Other Systems Reviewed Negative Unless Noted: Yes Past Vvaalzd-Dwnadd-Ubzlfw Hx Immunizations Up To Date Tetanus Booster (TDap): Unknown PED Vaccines UTD: Yes Seasonal Allergies Seasonal Allergies: Yes Past Medical History Surgeries: Yes (KIDNEY) Gallbladder, Tubal Ligation Respiratory: No Cardiac: No 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 oz. 76.585955wl; 32.00 BMI Method:Stated General Appearance: WD/WN, no apparent distress Eyes: Bilateral Eye Normal Inspection, Bilateral Eye PERRL, Bilateral Eye Abnormal EOM HEENT: PERRL/EOMI, normal ENT inspection, TMs normal, pharynx normal Neck: non-tender, full range of motion, supple Respiratory: chest non-tender, lungs clear, normal breath sounds, no respiratory distress, no accessory muscle use Cardiovascular: regular rate, rhythm, no edema, no gallop, no JVD Gastrointestinal: normal bowel sounds, non tender, soft, no organomegaly Extremities: normal range of motion, non-tender, normal inspection, no pedal edema Neurologic/Psychiatric: lab manager II-XII nml as tested, no motor/sensory deficits, alert, normal mood/affect, oriented x 3 Skin: normal color, warm/dry Progress/Results/Core Measures Suspected Sepsis SIRS Temperature: Pulse: Respiratory Rate: Blood Pressure / Mean: Results/Orders Lab Results Laboratory Tests Test 06/29/22 13:30 Range/Units Influenza Type A (RT-PCR) Not Detected Not Detecte Influenza Type B (RT-PCR) Not Detected Not Detecte SARS-CoV-2 RNA (RT-PCR) Detected H Not Detecte My Orders Orders - ROSIE LEVIN Covid 19 Inhouse Test (06/29/22 13:16) Influenza A And B By Pcr (06/29/22 13:16) Vital Signs/I&O 06/29/22 06/29/22 13:20 13:20 Temp 37.6 Pulse 98 Resp 18 B/P (MAP) 116/88 (97) Pulse Ox 98 O2 Delivery Room Air Room Air Capillary Refill : Departure Communication (PCP) Patient vital signs stable. Does not appear toxic. Tolerating p.o. fluids. High risk for COVID secondary to her tested positive. She tested positive here. Lung sounds clear bilateral. She is nonhypoxic. Heart rate around 98 bpm. She is afebrile. Discussed paxlovid with patient. She agrees to proceed with the medication. She is not on any medication that her contradicted at this time. Normal kidney function with previous lab work drawn last week. Discussed monitoring oxygen level. If any worsening symptoms such as shortness of breath not able to eat or drink, decreased output to return back to ED. She states she is urinating frequently and staying hydrated. Discussed isolation for the next 5 days. If continue symptomatic symptoms recommend continue with another 5 days. Discussed wearing mask after day 5 to atleast day 10 if asymptomatic, no fever for 24 hours. If any worsening symptoms return back to ED. Impression Primary Impression: COVID-19 Disposition: 01 HOME, SELF-CARE Condition: Stable Departure-Patient Inst. Decision time for Depature: 14:20 Referrals: [facility] [place] PHYSIC[place] (PCP) Primary Care Physician Patient Instructions: COVID-19 (DC) Scripts Nirmatrelvir/Ritonavir (Paxlovid Co-Pack (Eua)) 150 Mg X 2-100 Mg Tablet 1 EACH PO UD for 5 Days, #1 EACH Prov: ROSIE LEVIN 06/29/22 Work/School Note: Work Release Form Date Seen in the Emergency Department: Jun 29, 2022 Return to Work: Jul 07, 2022 ROSIE LEVIN Jun 29, 2022 13:38
[2022-06-29] MEDS ORDERED: NIRM1TAB PO (14:20)
[2022-06-29 14:30] VITALS: BP 118/85
== END 2022-06-29 14:25 | disposition home or self-care (01) ==
LOC: EDUNIT# 13:11 → ER 13:17
DX: U07.1 COVID-19 (principal); K21.9 Gastro-esophageal reflux disease without esophagitis; Z28.310 Unvaccinated for COVID-19; Z79.899 Other long term (current) drug therapy
CPT/HCPCS: 87636; 99283

== ENCOUNTER → 2022-09-18 | Outpatient (CLI) | payer OTHER ==
[~2022-09-18] MED LIST changes: +NIRM1TAB PO
--- NOTE | 2022-09-18 13:51 | Diagnostic Imaging Report ---
CT ABDOMEN/PELVIS WO TECHNIQUE: Unenhanced CT imaging of the abdomen and pelvis was performed. 2-D reformats are created and submitted for interpretation. Automatic exposure controls were utilized to optimize patient dose. INDICATION: Right lower quadrant pain. COMPARISON: 06/26/2020. FINDINGS: Lower chest: Lung bases are clear. Peritoneum: No free intraperitoneal air or fluid. Liver and biliary system: Diffuse hypoattenuation of the liver is most indicative of hepatic steatosis. Cholecystectomy. No biliary duct dilatation. Spleen and Pancreas: Spleen is normal. Unenhanced pancreas is grossly normal. Adrenals: Normal. tract: Bilateral nonobstructing renal stones. The largest is in the left renal pelvis measuring 5 mm. No hydronephrosis. Multiple pelvic phleboliths are present. Urinary bladder is normal in appearance. Uterus and ovaries are unremarkable. GI tract: Stomach is decompressed. No bowel obstruction. Descending and sigmoid colon diverticulosis without diverticulitis. Normal appendix. Vasculature and Lymph nodes: Normal caliber aorta. No abdominal or pelvic lymphadenopathy. Musculoskeletal: No concerning osseous lesion. IMPRESSION: 1. Bilateral nonobstructing renal stones. 2. Normal appendix. 3. Colonic diverticulosis without diverticulitis. Dictated by: Dictated on workstation # [id number]
== END ==
LOC: RAD 13:13
PROVIDERS: ATTEND Registered Nurse Critical Care Medicine
DX: Z02.89 Encounter for other administrative examinations (principal); Z76.0 Encounter for issue of repeat prescription; N20.0 Calculus of kidney; K57.90 Diverticulosis of intestine, part unspecified, without perforation or abscess without bleeding; G44.001 Cluster headache syndrome, unspecified, intractable; Z71.3 Dietary counseling and surveillance; K21.9 Gastro-esophageal reflux disease without esophagitis; G43.009 Migraine without aura, not intractable, without status migrainosus; G43.909 Migraine, unspecified, not intractable, without status migrainosus; E78.49 Other hyperlipidemia; S56.09 Other injury of flexor muscle, fascia and tendon of thumb at forearm level
CPT/HCPCS: 74176

== ENCOUNTER 2023-07-03 13:09 | Emergency (ER) | payer OTHER ==
[~2023-07-03] VITALS: Ht 157 cm; Wt 77.0 kg
--- NOTE | 2023-07-03 13:31 | ED Abdominal Pain ---
General Stated Complaint: HX OF KIDNEY STONES | LOWER BACK AND GROIN PAIN Source of Information: Patient Exam Limitations: No Limitations History of Present Illness Date Seen by Provider: Jul 03, 2023 Time Seen by Provider: 13:28 Initial Comments Patient is a 47-year-old female who presents the ED for left groin, suprapubic pain and left flank pain, left lower back pain. Symptoms started around 9 this morning. Pain is described as sharp and hurts with certain positions especially with standing or leaning up. She is currently pain-free when she lies down. Pain radiates into the groin and a sharp shooting pain down her left leg. History of kidney stones and states this does feel very similar. She attempted to urinate with out any improvement. She denies any nausea, vomiting, diarrhea. Denies taking thing for pain. History of tubal ligation and cholecystectomy. She did have some vaginal bleeding 2 weeks ago and reports a mild vaginal bleeding today. History of irregular menstrual cycles and states she is going through premenopause. She denies pain with urination, frequent urination, headache, dizziness, chest pain, shortness of breath or cough. Denies of any specific injury. History of sciatica Allergies and Home Medications Allergies Coded Allergies: Penicillins (Verified Allergy, Severe, SOA, HIVES, EDEMA, 11/20/18) acetaminophen (Verified Allergy, Severe, ANAPHYLAXIS, 06/17/20) amoxicillin (Verified Allergy, Severe, SOA, HIVES, EDEMA, 11/20/18) ampicillin (Verified Allergy, Severe, SOA, HIVES, EDEMA, 11/20/18) codeine (Verified Allergy, Severe, RASH, EDEMA, 11/20/18) meperidine (Verified Allergy, Severe, RASH, SOA, EDEMA, 11/20/18) sulfamethoxazole (Verified Allergy, Severe, ANAPHYLAXIS, 06/17/20) trimethoprim (Verified Allergy, Severe, ANAPHYLAXIS, 06/17/20) hydrocodone (Verified Allergy, Unknown, ANAPHYLAXIS, 06/17/20) Uncoded Allergies: ALL PAIN MEDS (Allergy, Severe, HIVES, SOA, EDEMA, 11/20/18) Patient Home Medication List Home Medication List Reviewed: Yes Cephalexin (Cephalexin) 500 Mg Tablet, 500 MG PO BID Prescribed by: ZAY MALDONADO on 07/03/23 8387 Nirmatrelvir/Ritonavir (Paxlovid Co-Pack (Eua)) 150 Mg X 2-100 Mg Tablet, 1 EACH PO UD Prescribed by: ZAY MALDONADO on 06/29/22 1420 Tramadol HCl (Tramadol HCl) 50 Mg Tablet, 50 MG PO Q6H PRN for PAIN Prescribed by: RBIT ALEXANDRA on 06/26/20 2200 Tramadol HCl (Tramadol HCl) 50 Mg Tablet, 50 MG PO Q6H PRN for PAIN Prescribed by: GRIS MEYERS on 07/18/21 1355 Review of Systems Review of Systems Constitutional: No diaphoresis EENTM: No Blurred Vision, No Eye Pain Respiratory: Denies Cough, Denies Orthopnea Cardiovascular: Denies Chest Pain Gastrointestinal: Abdominal Pain; Denies Nausea, Denies Vomiting Genitourinary: Denies Burning, Denies Discharge, Denies Drainage, Denies Frequency; Flank Pain, Other (Vaginal bleeding) Musculoskeletal: back pain; No joint pain, No joint swelling, No muscle pain Skin: No change in color, No change in hair/nails Psychiatric/Neurological: Denies Anxiety, Denies Depressed Endocrine: Denies Excessive Sweating, Denies Flushing All Other Systems Reviewed Negative Unless Noted: Yes Past Qtzecxi-Vlfegd-Omipfy Hx Immunizations Up To Date Tetanus Booster (TDap): Unknown PED Vaccines UTD: Yes First/Initial COVID19 Vaccinat: N/A Seasonal Allergies Seasonal Allergies: Yes Past Medical History Surgery/Hospitalization HX: GERD CHOLECYSTECTOMY Surgeries: Yes (KIDNEY) Gallbladder, Tubal Ligation Respiratory: No Cardiac: No Neurological: No [employer] History: Tubal Ligation Sexually Transmitted Disease: No HIV/AIDS: No Genitourinary: Yes Kidney Stones Gastrointestinal: Yes Gastroesophageal Reflux Musculoskeletal: Yes Arthritis Endocrine: No HEENT: Yes (READING GLASSES) Loss of Vision: Denies Hearing Impairment: Denies Cancer: No Psychosocial: Yes Anxiety Integumentary: Yes Eczema Blood Disorders: No Adverse Reaction/Blood Tranf: No (N/A) Physical Exam Vital Signs Vital Signs - First Documented 07/03/23 15:34 Temp 36.5 Pulse 87 Resp 18 B/P (MAP) 108/56 (73) O2 Delivery Room Air Capillary Refill : Height/Weight/BMI Height: 5'1.00" Weight: 169lbs. oz. 76.022466bd; 31.00 BMI Method:Stated General Appearance: WD/WN, no apparent distress HEENT: PERRL/EOMI, normal ENT inspection, TMs normal, pharynx normal Neck: non-tender, full range of motion, supple Respiratory: chest non-tender, lungs clear, normal breath sounds, no respi ratory distress, no accessory muscle use Cardiovascular: regular rate, rhythm, no edema, no gallop, no JVD Gastrointestinal: normal bowel sounds, soft, no organomegaly, tenderness (Suprapubic tenderness) Extremities: normal range of motion, non-tender, normal inspection, no pedal edema Back: no CVA tenderness, other (Lower lumbar, sacrum tenderness. No CVA tenderness bilateral.) Pelvic: normal external exam Neurologic/Psychiatric: regulatory affairs spec II-XII nml as tested, no motor/sensory deficits, alert, normal mood/affect, oriented x 3 Skin: normal color, warm/dry Progress/Results/Core Measures Results/Orders Lab Results Laboratory Tests Test 07/03/23 13:32 07/03/23 13:39 Range/Units White Blood Count 5.7 4.3-11.0 10^3/uL Red Blood Count 3.87 3.80-5.11 10^6/uL Hemoglobin 12.0 11.5-16.0 g/dL Hematocrit 36 35-52 % Mean Corpuscular Volume 93 80-99 fL Mean Corpuscular Hemoglobin 31 25-34 pg Mean Corpuscular Hemoglobin Concent 33 32-36 g/dL Red Cell Distribution Width 13.1 10.0-14.5 % Platelet Count 197 130-400 10^3/uL Mean Platelet Volume 11.8 9.0-12.2 fL Immature Granulocyte % (Auto) 0 % Neutrophils (%) (Auto) 76 H 42-75 % Lymphocytes (%) (Auto) 14 12-44 % Monocytes (%) (Auto) 7 0-12 % Eosinophils (%) (Auto) 3 0-10 % Basophils (%) (Auto) 1 0-10 % Neutrophils # (Auto) 4.3 1.8-7.8 10^3/uL Lymphocytes # (Auto) 0.8 L 1.0-4.0 10^3/uL Monocytes # (Auto) 0.4 0.0-1.0 10^3/uL Eosinophils # (Auto) 0.1 0.0-0.3 10^3/uL Basophils # (Auto) 0.0 0.0-0.1 10^3/uL Immature Granulocyte # (Auto) 0.0 0.0-0.1 10^3/uL Sodium Level 143 135-145 MMOL/L Potassium Level 3.7 3.6-5.0 MMOL/L Chloride Level 111 H 98-107 MMOL/L Carbon Dioxide Level 23 21-32 MMOL/L Anion Gap 9 5-14 MMOL/L Blood Urea Nitrogen 14 7-18 MG/DL Creatinine 0.88 0.60-1.30 MG/DL Estimat Glomerular Filtration Rate 82 BUN/Creatinine Ratio 16 Glucose Level 97 70-105 MG/DL Calcium Level 9.1 8.5-10.1 MG/DL Corrected Calcium 8.9 8.5-10.1 MG/DL Total Bilirubin 0.4 0.1-1.0 MG/DL Aspartate Amino Transf (AST/SGOT) 16 5-34 U/L Alanine Aminotransferase (ALT/SGPT) 20 0-55 U/L Alkaline Phosphatase 51 40-136 U/L Total Protein 6.9 6.4-8.2 GM/DL Albumin 4.3 3.2-4.5 GM/DL Lipase 25 8-78 U/L Urine Color YELLOW Urine Clarity CLEAR Urine pH 5.5 5-9 Urine Specific [place] >=1.030 1.016-1.022 Urine Protein 2+ H NEGATIVE Urine Glucose (UA) NEGATIVE NEGATIVE Urine Ketones NEGATIVE NEGATIVE Urine Nitrite NEGATIVE NEGATIVE Urine Bilirubin NEGATIVE NEGATIVE Urine Urobilinogen 0.2 < = 1.0 MG/DL Urine Leukocyte Esterase NEGATIVE NEGATIVE Urine RBC (Auto) 3+ H NEGATIVE Urine RBC 50-100 H /HPF Urine WBC NONE /HPF Urine Squamous Epithelial Cells RARE /HPF Urine Crystals NONE /LPF Urine Bacteria NEGATIVE /HPF Urine Casts NONE /LPF Urine Mucus NEGATIVE /LPF Urine Culture Indicated NO My Orders Orders - ROSIE LEVIN Urinalysis (07/03/23 13:10) Cbc With Automated Diff (07/03/23 13:26) Comprehensive Metabolic Panel (07/03/23 13:26) Lipase (07/03/23 13:26) Ct Abd/Pelvis Wo(Kidney Stone) (07/03/23 13:26) Vital Signs/I&O 07/03/23 15:34 Temp 36.5 Pulse 87 Resp 18 B/P (MAP) 108/56 (73) O2 Delivery Room Air Departure Communication (PCP) Reviewed previous ER visits, H&P, lab testing. Differential diagnosis, nephrolithiasis, urolithiasis, UTI, menstrual cycle, sciatica. Reviewed previous ER visit, H&P, lab testing. Patient with left groin pain with radi ation to left flank. Suprapubic discomfort. Started her menstrual cycle today. She states she is currently going through menopause where she has a regular menstrual cycles. She states pain seems to be positional when she stands worse with sharp shooting pain down her left leg. She is comfortable when she lies down. She refused anything for pain. CBC, CMP, lipase, urinalysis was ordered. Urinalysis positive for hematuria without evidence of infection. CBC grossly unremarkable. Chemistry grossly unremarkable. Patient refused anything for pain. Due to the pain from the left groin to the left flank CT scan of the abdomen pelvis was ordered which shows a left renal calculus increased in size at the level of the renal pelvis now with some regional urethral thickening and stranding but no flank hydronephrosis. Urinalysis without evidence of infection. Due to the urethral thickening and stranding will discharge with Keflex prophylactically. Likely more chronic however she did have some lower sacrum and lumbar midline tenderness this pain exacerbates with movement resulting in radiculopathy pain down the left leg. History of sciatica according to patient. This is likely associated to her symptoms in her leg. No fever, night sweats, chills or drug use. suggest anti-inflammatories, stretching and to follow-up with your PCP for further evaluation. She has no bowel or urine incontinence or saddle paresthesia suggesting emergent MRI imaging. If any worsening symptoms return back to ED for further evaluation. Provided urology outpatient follow-up for the results. She is currently on her menstrual cycle which could be result of some of the suprapubic pain. If continued pain in this region may warrant ultrasound for further evaluation. Follow-up with your PCP in 2 to 3 days for reevaluation Impression Primary Impression: Nephrolithiasis Disposition: 01 HOME, SELF-CARE Condition: Stable Departure-Patient Inst. Decision time for Depature: 15:16 Referrals: [facility] [place],LOCAL PHYSICIAN (PCP) Primary Care Physician Patient Instructions: Kidney Stone, Adult ED Add. Discharge Instructions: Recommend following up with [facility] [phone]. Anti-inflammatories for pain. Stretching. Further evaluation for the back pain with your primary care physician Scripts Cephalexin (Cephalexin) 500 Mg Tablet 500 MG PO BID for 10 Days, #20 TAB Prov: ROSIE LEVIN 07/03/23 Work/School Note: Work Release Form Date Seen in the Emergency Department: Jul 03, 2023 Return to Work: Jul 05, 2023 ROSIE LEVIN Jul 03, 2023 13:31
[2023-07-03 13:40] LABS: BASOPHILS % (AUTO) 1 % (0-10); EOSINOPHILS # (AUTO) 0.1 10^3/uL (0.0-0.3); EOSINOPHILS % (AUTO) 3 % (0-10); HEMATOCRIT 36 % (35-52); LYMPHOCYTES # (AUTO) 0.8 10^3/uL (1.0-4.0); LYMPHOCYTES % (AUTO) 14 % (12-44); MEAN CORPUSCULAR HEMOGLOBIN 31 pg (25-34); MEAN CORPUSCULAR HGB CONC 33 g/dL (32-36); MEAN CORPUSCULAR VOLUME 93 fL (80-99); MEAN PLATELET VOLUME 11.8 fL (9.0-12.2); MONOCYTES # (AUTO) 0.4 10^3/uL (0.0-1.0); MONOCYTES % (AUTO) 7 % (0-12); NEUTROPHILS # (AUTO) 4.3 10^3/uL (1.8-7.8); NEUTROPHILS % (AUTO) 76 % (42-75); PLATELET COUNT 197 10^3/uL (130-400); WHITE BLOOD COUNT 5.7 10^3/uL (4.3-11.0)
[2023-07-03 13:52] LABS: ALBUMIN 4.3 GM/DL (3.2-4.5); POTASSIUM 3.7 MMOL/L (3.6-5.0)
[2023-07-03 13:54] LABS: CALCIUM 9.1 MG/DL (8.5-10.1)
[2023-07-03 13:55] LABS: TOTAL PROTEIN 6.9 GM/DL (6.4-8.2)
[2023-07-03 13:57] LABS: BILIRUBIN,TOTAL 0.4 MG/DL (0.1-1.0)
[2023-07-03 13:57] LABS: CLARITY,URINE CLEAR; COLOR,URINE YELLOW; GLUCOSE, URINE (UA) NEGATIVE (NEGATIVE); KETONES,URINE NEGATIVE (NEGATIVE); PH,URINE 5.5 (5-9); PROTEIN,URINE 2+ (NEGATIVE)
[2023-07-03 13:58] LABS: BACTERIA,URINE NEGATIVE /HPF; BILIRUBIN,URINE NEGATIVE (NEGATIVE); LEUKOCYTE ESTERASE ,URINE NEGATIVE (NEGATIVE); NITRITE,URINE NEGATIVE (NEGATIVE); RBC,URINE 50-100 /HPF; SQUAMOUS EPITHELIAL CELL,UR RARE /HPF
[2023-07-03 13:59] LABS: CREATININE SERUM 0.88 MG/DL (0.60-1.30)
--- NOTE | 2023-07-03 14:28 | Diagnostic Imaging Report ---
PROCEDURE: CT urinary tract, rule out kidney stone. TECHNIQUE: Multiple contiguous axial images were obtained through the abdomen and pelvis without the use of intravenous contrast. Auto Exposure Controls were utilized during the CT exam to meet ALARA standards for radiation dose reduction. INDICATION: Left flank pain. Its compared with study 09/18/2022 FINDINGS: The dominant calculus layering within the left renal pelvis is increased in size 6.9 mm today, previously 5.8 mm. Now there is some urothelial thickening of the left renal pelvis and mild vashti-pelvic stranding of the retroperitoneal fat. There is however no calyceal dilatation or emmett hydronephrosis. Nonobstructing calculi within left upper pole calyx measured 3 mm maximal. The unobstructed right kidney without stone. Unopacified urinary bladder unremarkable. Gallbladder absent. No bile duct dilatation. The remaining abdominal pelvic solid and hollow viscera unremarkable. IMPRESSION: Left renal calculus increased in size at the level of the renal pelvis now with some regional urothelial thickening and stranding but no emmett hydronephrosis correlate with urinalysis as infection could not be excluded. Chronic noninflamed diverticulosis. Exam otherwise stable and nonacute. Dictated by: Dictated on workstation # [id number]
[2023-07-03 15:34] VITALS: BP 108/56
[2023-07-03] MEDS ORDERED: CEPH500T PO (16:05)
== END 2023-07-03 15:25 | disposition home or self-care (01) ==
LOC: EDUNIT# 13:09 → ER 13:12
DX: N20.0 Calculus of kidney (principal); Z87.442 Personal history of urinary calculi; Z88.0 Allergy status to penicillin; Z88.2 Allergy status to sulfonamides
CPT/HCPCS: 36415; 74176; 80053; 81000; 83690; 85025